=== PATIENT | male | born 1955 | race Caucasian/White ===

== ENCOUNTER 2016-07-12 06:52 | Inpatient (IN) | payer OTHER ==
[2016-07-12] VITALS (14 sets, daily range): BP systolic 0–162; BP diastolic 0–88
[~2016-07-12] VITALS: Ht 182.9 cm; Wt 96.2 kg
[~2016-07-12 06:52] MED LIST: ADVAIR 500/501 DISK IH; ALBUTEROL0.63 MG/3 IH; LANTUS 3 M100 UNITS1 SC; LANTUS 3 M100 UNITS1 SQ; LISINOPRIL40 MG PO; LO-DOSE ASPIRIN81 M2 PO; NIACIN500 M4 PO; NOVOLOG PE100 UNITS/ SC; SPIRIVA RESPIMAT4 GM IH; VALIUM5 MG PO; VENTOLIN HFA18 GM IH
[2016-07-12 08:36] LABS: ADD MIUA? YES; BILIRUBIN NEGATIVE; BLOOD MODERATE; COLOR STRAW ((YELLOW)); GLUCOSE (STRIP) >=500; KETONES 80; LEUKOCYTES NEGATIVE; NITRITE NEGATIVE; PROTEIN (STRIP) 100; SPECIFIC GRAVITY 1.021 (1.000-1.030); UROBILINOGEN 0.2 MG/DL (0.2-1.0)
[2016-07-12 08:39] LABS: BACTERIA NONE SEEN /HPF; EPITHELIAL CELLS NONE SEEN /HPF; MUCUS TRACE /LPF; RED BLOOD CELLS 0-5 /HPF (0-5); UCUL ADDED? NO; WHITE BLOOD CELLS 0-5 /HPF (0-5)
[2016-07-12 08:40] LABS: EOSINOPHIL (%) 0 % (0-5); HEMATOCRIT 43.3 % (38.0-50.0); IMMATURE GRANULOCYTE (%) 0.4 % (0.0-0.7); IMMATURE GRANULOCYTE COUNT 0.6 K/uL; LYMPHOCYTE COUNT 0.7 K/uL (1.0-2.8); MCH 33.3 PG (29.0-34.0); MCHC 36.3 G/DL (30.0-36.0); MCV 91.7 FL (86-99); MEAN PLAT.VOLUME 11.1 uM^3 (9.0-12.4); MONOCYTE (%) 5.8 % (3-12); MONOCYTE COUNT 0.8 K/uL (0-0.8); NEUTROPHIL (%) 88.5 % (45-76); NEUTROPHIL COUNT 12.2 K/uL (1.8-6.4); PLATELET COUNT 238 K/uL (156-360); RBC DIS.WIDTH-CV 12.9 % (11.8-14.6); RBC DIS.WIDTH-SD 42.2 % (39-53); RED BLOOD COUNT 4.72 M/uL (4.00-5.50); WHITE BLOOD COUNT 13.8 K/uL (4.1-10.2)
[2016-07-12 09:10] LABS: TROP-I INTERPRETATION NEGATIVE; TROPONIN-I 0.02 ng/mL (0.0-0.30)
[2016-07-12 09:17] LABS: ALKALINE PHOSPHATASE 101 IU/L (3-129); ANION GAP 30 MEQ/L (2-14); CHLORIDE 95 MEQ/L (99-109); GFR ESTIMATE (CALCULATED) > 59 mL/min/; LIPASE 12 U/L (1.0-51.0); POTASSIUM 5.1 MEQ/L (3.7-5.4); SAMPLE HEMOLYSIS CHECK 0; SAMPLE ICTERIC CHECK 0; SAMPLE LIPEMIA CHECK 0; SODIUM 132 MEQ/L (136-147); TOTAL BILIRUBIN 0.7 MG/DL (0.0-1.0); UREA NITROGEN (BUN) 30 mg/dL (9-23)
[2016-07-12 09:18] LABS: GLUCOSE 479 mg/dL (70-99)
[2016-07-12 11:46] LABS: INFLUENZA A VIRAL ANTIGEN NEGATIVE; INFLUENZA B VIRAL ANTIGEN NEGATIVE
[2016-07-12 12:32] LABS: METH RESISTANT S AUREUS PCR NEGATIVE (NEGATIVE)
[2016-07-12 12:44] LABS: PROBE CHECK PASS; SPECIMEN PROCESSING CONTROL PASS
[2016-07-12] MEDS ORDERED: SINGULAIR10 MG PO (12:57)
[2016-07-12] MEDS ORDERED: THEOPHYLLINE400 MG PO (12:57)
[2016-07-12] MEDS ORDERED: MICROZIDE12.5 M1 PO (12:58)
[2016-07-12] MEDS ORDERED: AUGMENTIN875 MG PO (12:59)
[2016-07-12] MEDS ORDERED: DEPO-TESTOS200 MG/ML IM (12:59)
[2016-07-12] MEDS ORDERED: VALIUM2 MG PO (13:00)
[2016-07-12 13:28] LABS: CARBOXY HGB 2.6 % (0-5); COMMENTS - BLOOD GASES A+C+; DEVICE RA; METHEMOGLOBIN 1.5 % (0-1.5); PCO2 < 18 mm Hg (35-45); PO2 108 mm Hg (80-100); SITE LR; pH 7.09 (7.35-7.45)
[2016-07-12 14:35] LABS: POINT-OF-CARE METER ID UU13113731
[2016-07-12 14:52] LABS: POINT-OF-CARE METER ID UU13113731
[2016-07-12 15:57] LABS: POINT-OF-CARE METER ID UU13113731
[2016-07-12 16:40] LABS: ANION GAP 16 MEQ/L (2-14); CHLORIDE 107 MEQ/L (99-109); GFR ESTIMATE (CALCULATED) > 59 mL/min/; GLUCOSE 296 mg/dL (70-99); POTASSIUM 4.7 MEQ/L (3.7-5.4); SAMPLE HEMOLYSIS CHECK 1; SAMPLE ICTERIC CHECK 0; SAMPLE LIPEMIA CHECK 0; SODIUM 133 MEQ/L (136-147); UREA NITROGEN (BUN) 29 mg/dL (9-23)
[2016-07-12 17:05] LABS: POINT-OF-CARE METER ID UU13113731
[2016-07-12 18:11] LABS: POINT-OF-CARE METER ID UU13113748
[2016-07-12 19:16] LABS: POINT-OF-CARE METER ID UU13113748
[2016-07-12 19:47] LABS: HEMATOCRIT 38.9 % (38.0-50.0); MCV 92.8 FL (86-99)
[2016-07-12 20:12] LABS: ANION GAP 12 MEQ/L (2-14); CHLORIDE 109 MEQ/L (99-109); POTASSIUM 4.1 MEQ/L (3.7-5.4); SAMPLE HEMOLYSIS CHECK 0; SAMPLE ICTERIC CHECK 0; SAMPLE LIPEMIA CHECK 0; SODIUM 136 MEQ/L (136-147)
[2016-07-12 20:17] LABS: GFR ESTIMATE (CALCULATED) > 59 mL/min/; GLUCOSE 192 mg/dL (70-99); UREA NITROGEN (BUN) 25 mg/dL (9-23)
[2016-07-12 20:37] LABS: POINT-OF-CARE METER ID UU13113748; POINT-OF-CARE USER ID PHATLC
[2016-07-12 21:32] LABS: POINT-OF-CARE METER ID UU13113748; POINT-OF-CARE USER ID PHATLC
[2016-07-12 22:50] LABS: POINT-OF-CARE METER ID UU13113748; POINT-OF-CARE USER ID PHATLC
[2016-07-12 23:55] LABS: POINT-OF-CARE METER ID UU13113748; POINT-OF-CARE USER ID PHATLC
[2016-07-13] VITALS (24 sets, daily range): BP systolic 118–159; BP diastolic 53–87
[2016-07-13 00:40] LABS: HEMATOCRIT 34.4 % (38.0-50.0); MCV 90.8 FL (86-99)
[2016-07-13 00:50] LABS: CHLORIDE 113 mEq/L (99-109); POTASSIUM 3.9 mEq/L (3.7-5.4); SODIUM 137 mEq/L (136-147)
[2016-07-13 00:52] LABS: GLUCOSE 131 mg/dL (70-99)
[2016-07-13 00:53] LABS: ANION GAP 8 MEQ/L (2-14)
[2016-07-13 00:56] LABS: GFR ESTIMATE (CALCULATED) > 59 mL/min/
[2016-07-13 00:57] LABS: UREA NITROGEN (BUN) 22 mg/dL (9-23)
[2016-07-13 00:58] LABS: POINT-OF-CARE METER ID UU13113748; POINT-OF-CARE USER ID PHATLC
[2016-07-13 03:19] LABS: POINT-OF-CARE METER ID UU13113731; POINT-OF-CARE USER ID PHATLC
[2016-07-13 05:58] LABS: HEMATOCRIT 35.2 % (38.0-50.0); MCV 93.6 FL (86-99)
[2016-07-13 06:40] LABS: ANION GAP 16 MEQ/L (2-14); CHLORIDE 107 MEQ/L (99-109); GFR ESTIMATE (CALCULATED) > 59 mL/min/; SAMPLE HEMOLYSIS CHECK 0; SAMPLE ICTERIC CHECK 0; SAMPLE LIPEMIA CHECK 0; SODIUM 135 MEQ/L (136-147); UREA NITROGEN (BUN) 21 mg/dL (9-23)
[2016-07-13 06:44] LABS: GLUCOSE 260 mg/dL (70-99); POTASSIUM 4.7 MEQ/L (3.7-5.4)
[2016-07-13 07:21] LABS: Estimated Average Glucose 272 mg/dL (70-123); HEMOGLOBIN A1c (GLYCOHEMOGLOB) 11.1 % HGB (Below 5.7)
[2016-07-13 08:13] LABS: MAGNESIUM 1.8 mg/dl (1.3-2.7)
[2016-07-13 09:16] LABS: ANION GAP 20 MEQ/L (2-14); CHLORIDE 105 MEQ/L (99-109); GFR ESTIMATE (CALCULATED) > 59 mL/min/; GLUCOSE 331 mg/dL (70-99); POTASSIUM 4.5 MEQ/L (3.7-5.4); SAMPLE HEMOLYSIS CHECK 0; SAMPLE ICTERIC CHECK 0; SAMPLE LIPEMIA CHECK 0; SODIUM 134 MEQ/L (136-147); UREA NITROGEN (BUN) 21 mg/dL (9-23)
[2016-07-13 11:17] LABS: POINT-OF-CARE METER ID UU13113731
[2016-07-13 11:17] LABS: POINT-OF-CARE METER ID UU14100415
[2016-07-13 11:17] LABS: POINT-OF-CARE METER ID UU13113731
[2016-07-13 11:17] LABS: POINT-OF-CARE METER ID UU13113731
[2016-07-13 12:23] LABS: HEMATOCRIT 33.7 % (38.0-50.0); MCV 93.6 FL (86-99)
[2016-07-13 12:36] LABS: POINT-OF-CARE METER ID UU13113731
[2016-07-13 13:05] LABS: TROP-I INTERPRETATION NEGATIVE; TROPONIN-I 0.02 ng/mL (0.0-0.30)
[2016-07-13 13:28] LABS: CK-MB 2.8 ng/mL (0.0-4.9)
[2016-07-13 13:29] LABS: ANION GAP 15 MEQ/L (2-14); CHLORIDE 108 MEQ/L (99-109); CREATINE KINASE 38 IU/L (1-294); GFR ESTIMATE (CALCULATED) > 59 mL/min/; GLUCOSE 303 mg/dL (70-99); POTASSIUM 4.3 MEQ/L (3.7-5.4); SAMPLE HEMOLYSIS CHECK 0; SAMPLE ICTERIC CHECK 0; SAMPLE LIPEMIA CHECK 0; SODIUM 136 MEQ/L (136-147); TOTAL CK 38 IU/L (1-294); UREA NITROGEN (BUN) 20 mg/dL (9-23)
[2016-07-13 14:49] LABS: POINT-OF-CARE METER ID UU13113731
[2016-07-13 15:50] LABS: POINT-OF-CARE METER ID UU13113731
[2016-07-13 16:48] LABS: ANION GAP 11 MEQ/L (2-14); CHLORIDE 108 MEQ/L (99-109); POTASSIUM 3.6 MEQ/L (3.7-5.4); SAMPLE HEMOLYSIS CHECK 0; SAMPLE ICTERIC CHECK 0; SAMPLE LIPEMIA CHECK 0; SODIUM 135 MEQ/L (136-147)
[2016-07-13 16:53] LABS: GFR ESTIMATE (CALCULATED) > 59 mL/min/; GLUCOSE 254 mg/dL (70-99); UREA NITROGEN (BUN) 16 mg/dL (9-23)
[2016-07-13 16:56] LABS: POINT-OF-CARE METER ID UU13113803
[2016-07-13 18:12] LABS: POINT-OF-CARE METER ID UU13113803
[2016-07-13 18:12] LABS: MCV 92.2 FL (86-99)
[2016-07-13 18:27] LABS: CREATINE KINASE 35 IU/L (1-294); TOTAL CK 35 IU/L (1-294)
[2016-07-13 18:29] LABS: ANION GAP 9 MEQ/L (2-14); CHLORIDE 110 MEQ/L (99-109); POTASSIUM 3.8 MEQ/L (3.7-5.4); SAMPLE HEMOLYSIS CHECK 0; SAMPLE ICTERIC CHECK 0; SAMPLE LIPEMIA CHECK 0; SODIUM 137 MEQ/L (136-147)
[2016-07-13 18:34] LABS: GFR ESTIMATE (CALCULATED) > 59 mL/min/; GLUCOSE 198 mg/dL (70-99); TROP-I INTERPRETATION NEGATIVE; TROPONIN-I < 0.01 ng/mL (0.0-0.30); UREA NITROGEN (BUN) 15 mg/dL (9-23)
[2016-07-13 18:35] LABS: CK-MB 2.9 ng/mL (0.0-4.9)
[2016-07-13 19:24] LABS: POINT-OF-CARE METER ID UU13113803
[2016-07-13 20:38] LABS: POINT-OF-CARE METER ID UU13113803
[2016-07-13 21:29] LABS: POINT-OF-CARE METER ID UU13113803
[2016-07-13 22:23] LABS: POINT-OF-CARE METER ID UU13113803
[2016-07-13 23:46] LABS: POINT-OF-CARE METER ID UU13113731
[2016-07-14] VITALS (16 sets, daily range): BP systolic 143–180; BP diastolic 56–100
[2016-07-14 00:12] LABS: POINT-OF-CARE METER ID UU13113803
[2016-07-14 00:42] LABS: HEMATOCRIT 31.8 % (38.0-50.0); MCV 91.1 FL (86-99)
[2016-07-14 00:52] LABS: CHLORIDE 112 mEq/L (99-109); POTASSIUM 3.4 mEq/L (3.7-5.4); SODIUM 138 mEq/L (136-147)
[2016-07-14 00:53] LABS: GLUCOSE 125 mg/dL (70-99)
[2016-07-14 00:55] LABS: ANION GAP 7 MEQ/L (2-14)
[2016-07-14 00:57] LABS: GFR ESTIMATE (CALCULATED) > 59 mL/min/
[2016-07-14 00:58] LABS: UREA NITROGEN (BUN) 12 mg/dL (9-23)
[2016-07-14 01:00] LABS: CREATINE KINASE 31 IU/L (1-294); TOTAL CK 31 IU/L (1-294)
[2016-07-14 01:01] LABS: TROP-I INTERPRETATION NEGATIVE; TROPONIN-I < 0.01 ng/mL (0.0-0.30)
[2016-07-14 01:05] LABS: CK-MB 2.6 ng/mL (0.0-4.9)
[2016-07-14 01:17] LABS: POINT-OF-CARE METER ID UU13113803
[2016-07-14 02:25] LABS: POINT-OF-CARE METER ID UU14174217
[2016-07-14 05:54] LABS: EOSINOPHIL (%) 2.8 % (0-5); EOSINOPHIL COUNT 0.2 K/uL (0-0.3); HEMATOCRIT 32.3 % (38.0-50.0); IMMATURE GRANULOCYTE (%) 0.4 % (0.0-0.7); LYMPHOCYTE COUNT 1.1 K/uL (1.0-2.8); MCH 33.3 PG (29.0-34.0); MCHC 36.2 G/DL (30.0-36.0); MEAN PLAT.VOLUME 10.6 uM^3 (9.0-12.4); MONOCYTE COUNT 1.1 K/uL (0-0.8); NEUTROPHIL COUNT 5.4 K/uL (1.8-6.4); PLATELET COUNT 173 K/uL (156-360); RBC DIS.WIDTH-CV 12.8 % (11.8-14.6); RBC DIS.WIDTH-SD 42.9 % (39-53)
[2016-07-14 05:55] LABS: RED BLOOD COUNT 3.51 M/uL (4.00-5.50); WHITE BLOOD COUNT 7.9 K/uL (4.1-10.2)
[2016-07-14 05:57] LABS: TROP-I INTERPRETATION NEGATIVE; TROPONIN-I < 0.01 ng/mL (0.0-0.30)
[2016-07-14 06:04] LABS: ANION GAP 8 MEQ/L (2-14); CHLORIDE 107 MEQ/L (99-109); CREATINE KINASE 24 IU/L (1-294); GFR ESTIMATE (CALCULATED) > 59 mL/min/; GLUCOSE 162 mg/dL (70-99); POTASSIUM 3.6 MEQ/L (3.7-5.4); SAMPLE HEMOLYSIS CHECK 0; SAMPLE ICTERIC CHECK 0; SAMPLE LIPEMIA CHECK 0; SODIUM 135 MEQ/L (136-147); TOTAL CK 24 IU/L (1-294); UREA NITROGEN (BUN) 10 mg/dL (9-23)
[2016-07-14 06:22] LABS: POINT-OF-CARE METER ID UU13113803
[2016-07-14 06:46] LABS: CK-MB 1.8 ng/mL (0.0-4.9)
[2016-07-14 10:40] LABS: POINT-OF-CARE METER ID UU14174217
[2016-07-14 12:29] LABS: HEMATOCRIT 33.5 % (38.0-50.0); MCV 92.5 FL (86-99)
[2016-07-14 13:55] LABS: POINT-OF-CARE METER ID UU13113803
[2016-07-14 14:40] LABS: POINT-OF-CARE METER ID UU14174217
[2016-07-14 17:40] LABS: POINT-OF-CARE METER ID UU14174217
[2016-07-14 22:11] LABS: POINT-OF-CARE METER ID UU14174217
[2016-07-15] VITALS: BP 165/79
[2016-07-15 04:00] VITALS: BP 170/83
[2016-07-15 05:57] LABS: POINT-OF-CARE METER ID UU14162636
[2016-07-15 06:11] LABS: EOSINOPHIL (%) 3.1 % (0-5); EOSINOPHIL COUNT 0.2 K/uL (0-0.3); HEMATOCRIT 34.3 % (38.0-50.0); IMMATURE GRANULOCYTE (%) 0.6 % (0.0-0.7); LYMPHOCYTE COUNT 1.3 K/uL (1.0-2.8); MCH 31.7 PG (29.0-34.0); MCV 90.7 FL (86-99); MEAN PLAT.VOLUME 10.6 uM^3 (9.0-12.4); MONOCYTE (%) 13.6 % (3-12); MONOCYTE COUNT 0.9 K/uL (0-0.8); NEUTROPHIL (%) 61.9 % (45-76); PLATELET COUNT 194 K/uL (156-360); RBC DIS.WIDTH-CV 12.4 % (11.8-14.6); RBC DIS.WIDTH-SD 40.6 % (39-53); RED BLOOD COUNT 3.78 M/uL (4.00-5.50); WHITE BLOOD COUNT 6.4 K/uL (4.1-10.2)
[2016-07-15 07:09] LABS: ANION GAP 7 MEQ/L (2-14); CHLORIDE 104 MEQ/L (99-109); GFR ESTIMATE (CALCULATED) > 59 mL/min/; POTASSIUM 3.4 MEQ/L (3.7-5.4); SAMPLE HEMOLYSIS CHECK 0; SAMPLE ICTERIC CHECK 0; SAMPLE LIPEMIA CHECK 0; SODIUM 138 MEQ/L (136-147); UREA NITROGEN (BUN) 8 mg/dL (9-23)
[2016-07-15 07:10] LABS: GLUCOSE 85 mg/dL (70-99)
[2016-07-15 07:36] LABS: POINT-OF-CARE METER ID UU14174217
[2016-07-15 07:43] LABS: MAGNESIUM 1.9 mg/dl (1.3-2.7)
[2016-07-15 08:00] VITALS: BP 145/72
[2016-07-15] MEDS ORDERED: LEVAQUIN500 MG PO (08:08)
[2016-07-15 13:00] VITALS: BP 112/66
[2016-07-15 16:00] VITALS: BP 139/69
== END 2016-07-15 19:12 | disposition home or self-care (01) | DRG 638 ==
LOC: EME → EDBD 06:52 → EME 06:52 → EDOF 10:15 → 4WEST 10:15 → EDOF 10:15 → 4WEST 11:10
PROVIDERS: Emergency Medicine; Internal Medicine; Internal Medicine Nephrology
DX: E10.10 Type 1 diabetes mellitus with ketoacidosis without coma (principal); K92.2 Gastrointestinal hemorrhage, unspecified; E86.0 Dehydration; J44.9 Chronic obstructive pulmonary disease, unspecified; I10 Essential (primary) hypertension; G47.33 Obstructive sleep apnea (adult) (pediatric); N40.0 Benign prostatic hyperplasia without lower urinary tract symptoms; Z87.891 Personal history of nicotine dependence; E66.9 Obesity, unspecified; K52.9 Noninfective gastroenteritis and colitis, unspecified; J84.10 Pulmonary fibrosis, unspecified; E86.1 Hypovolemia; Z91.138 Patient's unintentional underdosing of medication regimen for other reason; T38.3X5A Adverse effect of insulin and oral hypoglycemic [antidiabetic] drugs, initial encounter; T38.3X6A Underdosing of insulin and oral hypoglycemic [antidiabetic] drugs, initial encounter
CPT/HCPCS: 36600; 71020; 80048; 80048 91; 80053; 81003; 82550; 82550 91; 82553; 82803; 82948; 83036; 83605; 83690; 83735; 84100; 84484; 85014; 85018; 85025; 87040; 87502; 87641; 93005; 94640; 94640 76; 94760; 94799; 99202; 99281; 99285; C9113; J1644; J1815; J1956; J2270; J2405; J2765; J3475; J3480; J7030; J7040; J7050; J7120

== ENCOUNTER 2017-01-12 16:32 | Emergency (ER) | payer OTHER ==
[~2017-01-12] VITALS: Ht 180.3 cm; Wt 66.9 kg
[~2017-01-12 16:32] MED LIST changes: +AUGMENTIN875 MG PO; +DEPO-TESTOS200 MG/ML IM; +LEVAQUIN500 MG PO; +MICROZIDE12.5 M1 PO; +SINGULAIR10 MG PO; +THEOPHYLLINE400 MG PO; +VALIUM2 MG PO
[2017-01-12 17:20] LABS: EOSINOPHIL (%) 2.4 % (0-5); EOSINOPHIL COUNT 0.3 K/uL (0-0.3); HEMATOCRIT 37.9 % (38.0-50.0); IMMATURE GRANULOCYTE (%) 0.4 % (0.0-0.7); IMMATURE GRANULOCYTE COUNT 0.1 K/uL; INSTRUMENT ABS NEUTROPHIL CT 7.7 K/uL; LYMPHOCYTE COUNT 3.3 K/uL (1.0-2.8); MCH 32.6 PG (29.0-34.0); MCHC 36.9 G/DL (30.0-36.0); MCV 88.3 FL (86-99); MEAN PLAT.VOLUME 10.1 uM^3 (9.0-12.4); MONOCYTE (%) 5.7 % (3-12); MONOCYTE COUNT 0.7 K/uL (0-0.8); NEUTROPHIL (%) 63.9 % (45-76); NEUTROPHIL COUNT 7.7 K/uL (1.8-6.4); PLATELET COUNT 272 K/uL (156-360); RBC DIS.WIDTH-CV 12.4 % (11.8-14.6); RBC DIS.WIDTH-SD 40.1 % (39-53); RED BLOOD COUNT 4.29 M/uL (4.00-5.50)
[2017-01-12 17:30] LABS: PROTHROMBIN TIME 10.6 SEC (10.2-12.9)
[2017-01-12 17:33] LABS: CHLORIDE 101 mEq/L (99-109); MAGNESIUM 2.1 mg/dL (1.3-2.7); POTASSIUM 3.4 mEq/L (3.7-5.4); PTT 28.4 SEC (25-37); SODIUM 135 mEq/L (136-147)
[2017-01-12 17:35] LABS: GLUCOSE 84 mg/dL (70-99)
[2017-01-12 17:37] LABS: ANION GAP 13 MEQ/L (2-14); TOTAL BILIRUBIN 0.4 mg/dL (0.0-1.0)
[2017-01-12 17:38] LABS: SERUM ETHYL ALCOHOL 40 mg/dL
[2017-01-12 17:39] LABS: ALKALINE PHOSPHATASE 68 IU/L (3-129); GFR ESTIMATE (CALCULATED) > 59 mL/min/
[2017-01-12 17:40] LABS: UREA NITROGEN (BUN) 30 mg/dL (9-23)
[2017-01-12 17:41] LABS: DIRECT BILIRUBIN 0.2 mg/dL (0.0-0.3)
[2017-01-12 17:43] LABS: LIPASE 9 U/L (1.0-51.0)
[2017-01-12 17:50] LABS: TROP-I INTERPRETATION NEGATIVE; TROPONIN-I < 0.01 ng/mL (0.0-0.30)
[2017-01-12 18:56] LABS: TROP-I INTERPRETATION NEGATIVE; TROPONIN-I < 0.01 ng/mL (0.0-0.30)
[2017-01-12 19:05] VITALS: BP 154/83
== END 2017-01-12 19:12 | disposition home or self-care (01) ==
LOC: EME 16:32
PROVIDERS: Emergency Medicine
DX: R07.89 Other chest pain (principal); E11.9 Type 2 diabetes mellitus without complications; Z96.41 Presence of insulin pump (external) (internal); Z79.4 Long term (current) use of insulin; R10.13 Epigastric pain; J44.9 Chronic obstructive pulmonary disease, unspecified; N40.0 Benign prostatic hyperplasia without lower urinary tract symptoms; G47.33 Obstructive sleep apnea (adult) (pediatric); F17.200 Nicotine dependence, unspecified, uncomplicated
CPT/HCPCS: 71010; 80048; 80076; 82010; 82803; 83690; 83735; 84484; 85025; 85610; 85730; 93005; 99281; 99285; G0480; J7030

== ENCOUNTER 2017-02-13 13:52 | Inpatient (IN) | payer OTHER ==
[~2017-02-13] VITALS: Ht 180.3 cm; Wt 70.4 kg
[2017-02-13 15:09] LABS: EOSINOPHIL (%) 3.6 % (0-5); EOSINOPHIL COUNT 0.4 K/uL (0-0.3); HEMATOCRIT 36.7 % (38.0-50.0); IMMATURE GRANULOCYTE (%) 0.3 % (0.0-0.7); INSTRUMENT ABS NEUTROPHIL CT 6.4 K/uL; LYMPHOCYTE COUNT 2.4 K/uL (1.0-2.8); MCH 32.3 PG (29.0-34.0); MCHC 35.1 G/DL (30.0-36.0); MCV 91.8 FL (86-99); MEAN PLAT.VOLUME 10.1 uM^3 (9.0-12.4); MONOCYTE (%) 7.8 % (3-12); MONOCYTE COUNT 0.8 K/uL (0-0.8); NEUTROPHIL (%) 64.2 % (45-76); NEUTROPHIL COUNT 6.4 K/uL (1.8-6.4); PLATELET COUNT 219 K/uL (156-360); RBC DIS.WIDTH-CV 12.9 % (11.8-14.6); RBC DIS.WIDTH-SD 43.2 % (39-53)
[2017-02-13 15:21] LABS: CHLORIDE 104 mEq/L (99-109); POTASSIUM 4.4 mEq/L (3.7-5.4); SODIUM 136 mEq/L (136-147)
[2017-02-13 15:22] LABS: GLUCOSE 85 mg/dL (70-99)
[2017-02-13 15:24] LABS: ANION GAP 5 MEQ/L (2-14)
[2017-02-13 15:26] LABS: GFR ESTIMATE (CALCULATED) > 59 mL/min/
[2017-02-13 15:27] LABS: UREA NITROGEN (BUN) 16 mg/dL (9-23)
[2017-02-13] MEDS ORDERED: INSULIN PUMP MC (16:45)
[2017-02-13] MEDS ORDERED: SYMBICORT60 INHALAT IH (17:26)
[2017-02-13] MEDS ORDERED: Topiramate (17:28)
[2017-02-13] MEDS ORDERED: LAMOTRIGINE PO (17:29)
[2017-02-13] MEDS ORDERED: ERGOCALCIF50000 UNIT PO (17:33)
[2017-02-13] MEDS ORDERED: TESSALON PERLE100 MG PO (17:35)
[2017-02-13] MEDS ORDERED: BENZONATATE100 MG PO (17:35)
[2017-02-13] MEDS ORDERED: MUCUS ER600 MG PO (17:40)
[2017-02-13] MEDS ORDERED: prostate medication (17:48)
[2017-02-13 20:04] VITALS: BP 147/83
[2017-02-13 23:04] LABS: POINT-OF-CARE METER ID UU13113717
[2017-02-13 23:39] VITALS: BP 144/81
[2017-02-14 06:27] LABS: HEMATOCRIT 34.1 % (38.0-50.0); MCH 33.9 PG (29.0-34.0); MCV 91.7 FL (86-99); MEAN PLAT.VOLUME 10.7 uM^3 (9.0-12.4); PLATELET COUNT 226 K/uL (156-360); RBC DIS.WIDTH-SD 43.4 % (39-53); RED BLOOD COUNT 3.72 M/uL (4.00-5.50); WHITE BLOOD COUNT 8.8 K/uL (4.1-10.2)
[2017-02-14 06:32] LABS: PROTHROMBIN TIME 11.4 SEC (10.2-12.9)
[2017-02-14 06:51] LABS: ALKALINE PHOSPHATASE 61 IU/L (3-129); ANION GAP 6 MEQ/L (2-14); CHLORIDE 105 MEQ/L (99-109); GFR ESTIMATE (CALCULATED) > 59 mL/min/; GLUCOSE 92 mg/dL (70-99); POTASSIUM 4.2 MEQ/L (3.7-5.4); SAMPLE HEMOLYSIS CHECK 0; SAMPLE ICTERIC CHECK 0; SAMPLE LIPEMIA CHECK 0; SODIUM 139 MEQ/L (136-147); TOTAL BILIRUBIN 0.9 MG/DL (0.0-1.0); UREA NITROGEN (BUN) 14 mg/dL (9-23)
[2017-02-14 09:26] VITALS: BP 145/82
[2017-02-14 12:08] LABS: POINT-OF-CARE METER ID UU14188625
[2017-02-14 16:52] LABS: POINT-OF-CARE METER ID UU14188625
[2017-02-14 16:53] LABS: POINT-OF-CARE METER ID UU14188625
[2017-02-14 18:05] LABS: POINT-OF-CARE METER ID UU13113717
[2017-02-15] VITALS: BP 155/77
[2017-02-15 01:16] VITALS: BP 174/84
[2017-02-15 03:47] LABS: METH RESISTANT S AUREUS PCR NEGATIVE (NEGATIVE)
[2017-02-15 03:50] LABS: PROBE CHECK PASS; SPECIMEN PROCESSING CONTROL PASS
[2017-02-15 06:54] LABS: Estimated Average Glucose 186 mg/dL (70-123)
[2017-02-15 07:04] LABS: HEMOGLOBIN A1c (GLYCOHEMOGLOB) 8.1 % HGB (Below 5.7)
[2017-02-15 07:50] VITALS: BP 157/79
[2017-02-15 12:20] LABS: POINT-OF-CARE METER ID UU14188625
[2017-02-15 15:15] VITALS: BP 132/63
[2017-02-15 16:12] LABS: POINT-OF-CARE METER ID UU13113717
[2017-02-15 23:25] VITALS: BP 137/77
[2017-02-16 07:54] VITALS: BP 164/97
[2017-02-16 08:22] LABS: POINT-OF-CARE METER ID UU13113717
[2017-02-16 15:33] VITALS: BP 150/78
[2017-02-16 17:35] LABS: POINT-OF-CARE METER ID UU13113717
[2017-02-17] VITALS: BP 160/80
[2017-02-17 08:03] VITALS: BP 160/87
[2017-02-17] MEDS ORDERED: ULTRAM50 MG PO (11:25)
[2017-02-17] MEDS ORDERED: KEFLEX500 MG PO (11:25)
[2017-02-18 15:21] LABS: POINT-OF-CARE METER ID UU13113717
[2017-02-18 15:23] LABS: POINT-OF-CARE METER ID UU13113717
[2017-02-18 15:23] LABS: POINT-OF-CARE METER ID UU13113717; POINT-OF-CARE USER ID STWAMT
== END 2017-02-17 12:10 | disposition home or self-care (01) | DRG 603 ==
LOC: EME 13:52 → EDOF 17:21 → 5SOUTH 17:21 → ENRESERV 17:26 → 5SOUTH 19:20
PROVIDERS: Emergency Medicine; Hospitalist; Internal Medicine Infectious Disease; Physician Assistant
DX: L03.115 Cellulitis of right lower limb (principal); E11.621 Type 2 diabetes mellitus with foot ulcer; L97.519 Non-pressure chronic ulcer of other part of right foot with unspecified severity; F17.210 Nicotine dependence, cigarettes, uncomplicated; Z96.41 Presence of insulin pump (external) (internal); E11.622 Type 2 diabetes mellitus with other skin ulcer; E11.42 Type 2 diabetes mellitus with diabetic polyneuropathy; N40.0 Benign prostatic hyperplasia without lower urinary tract symptoms; E11.628 Type 2 diabetes mellitus with other skin complications; E11.65 Type 2 diabetes mellitus with hyperglycemia; I10 Essential (primary) hypertension; J44.9 Chronic obstructive pulmonary disease, unspecified; G47.33 Obstructive sleep apnea (adult) (pediatric); F10.10 Alcohol abuse, uncomplicated; Z79.51 Long term (current) use of inhaled steroids; Z79.899 Other long term (current) drug therapy; Z79.4 Long term (current) use of insulin; Z79.82 Long term (current) use of aspirin
CPT/HCPCS: 73630; 73720; 80048; 80053; 80202; 82948; 83036; 85025; 85027; 85610; 85651; 86140; 87641; 90686; 94640; 94640 76; 99202; 99281; 99285; J0360; J0690; J1650; J1815; J2405; J2543; J3370; J7050

== ENCOUNTER 2017-04-06 10:43 | Inpatient (IN) | payer OTHER ==
[~2017-04-06] VITALS: Ht 180.3 cm; Wt 74.1 kg
[~2017-04-06 10:43] MED LIST changes: +BENZONATATE100 MG PO; +ERGOCALCIF50000 UNIT PO; +INSULIN PUMP MC; +KEFLEX500 MG PO; +LAMOTRIGINE PO; +MUCUS ER600 MG PO; +SYMBICORT60 INHALAT IH; +TESSALON PERLE100 MG PO; +Topiramate; +ULTRAM50 MG PO; +prostate medication
[2017-04-06 11:20] LABS: BASOPHIL COUNT 0.1 K/uL (0-0.1); EOSINOPHIL (%) 2.3 % (0-5); EOSINOPHIL COUNT 0.2 K/uL (0-0.3); HEMATOCRIT 35.2 % (38.0-50.0); IMMATURE GRANULOCYTE (%) 0.5 % (0.0-0.7); INSTRUMENT ABS NEUTROPHIL CT 6.2 K/uL; LYMPHOCYTE COUNT 1.5 K/uL (1.0-2.8); MCH 32.1 PG (29.0-34.0); MCHC 35.5 G/DL (30.0-36.0); MCV 90.3 FL (86-99); MEAN PLAT.VOLUME 9.8 uM^3 (9.0-12.4); MONOCYTE (%) 6.7 % (3-12); MONOCYTE COUNT 0.6 K/uL (0-0.8); NEUTROPHIL (%) 72.3 % (45-76); NEUTROPHIL COUNT 6.2 K/uL (1.8-6.4); PLATELET COUNT 334 K/uL (156-360); RBC DIS.WIDTH-CV 12.9 % (11.8-14.6); RBC DIS.WIDTH-SD 42.6 % (39-53); WHITE BLOOD COUNT 8.6 K/uL (4.1-10.2)
[2017-04-06 11:29] LABS: CHLORIDE 98 mEq/L (99-109); POTASSIUM 4.4 mEq/L (3.7-5.4); SODIUM 132 mEq/L (136-147)
[2017-04-06 11:30] LABS: MAGNESIUM 1.9 mg/dL (1.3-2.7)
[2017-04-06 11:32] LABS: GLUCOSE 466 mg/dL (70-99)
[2017-04-06 11:33] LABS: ANION GAP 7 MEQ/L (2-14); TOTAL BILIRUBIN 0.7 mg/dL (0.0-1.0)
[2017-04-06 11:35] LABS: ALKALINE PHOSPHATASE 94 IU/L (3-129); GFR ESTIMATE (CALCULATED) > 59 mL/min/
[2017-04-06 11:36] LABS: UREA NITROGEN (BUN) 23 mg/dL (9-23)
[2017-04-06] MEDS ORDERED: ASPIRIN EC325 MG PO (13:05)
[2017-04-06 13:33] LABS: C-REACTIVE PROTEIN 10.3 MG/L (0-10); SAMPLE HEMOLYSIS CHECK 0; SAMPLE ICTERIC CHECK 0; SAMPLE LIPEMIA CHECK 0
[2017-04-06 13:48] LABS: POINT-OF-CARE METER ID UU13113747
[2017-04-06 14:50] VITALS: BP 186/88
[2017-04-06 15:13] VITALS: BP 186/88
[2017-04-06 15:52] LABS: POINT-OF-CARE METER ID UU13113778
[2017-04-06 19:00] VITALS: BP 172/88
[2017-04-06 21:47] LABS: POINT-OF-CARE METER ID UU13113774
[2017-04-07 00:27] VITALS: BP 130/60
[2017-04-07 04:00] VITALS: BP 159/74
[2017-04-07 06:12] LABS: POINT-OF-CARE METER ID UU13113774
[2017-04-07 06:16] LABS: HEMATOCRIT 30.3 % (38.0-50.0); MCH 31.3 PG (29.0-34.0); MCHC 34.7 G/DL (30.0-36.0); MCV 90.2 FL (86-99); MEAN PLAT.VOLUME 9.9 uM^3 (9.0-12.4); PLATELET COUNT 294 K/uL (156-360); RBC DIS.WIDTH-CV 12.7 % (11.8-14.6); RBC DIS.WIDTH-SD 41.5 % (39-53); RED BLOOD COUNT 3.36 M/uL (4.00-5.50); WHITE BLOOD COUNT 7.7 K/uL (4.1-10.2)
[2017-04-07 06:34] LABS: ANION GAP 4 MEQ/L (2-14); CHLORIDE 103 MEQ/L (99-109); GFR ESTIMATE (CALCULATED) > 59 mL/min/; GLUCOSE 274 mg/dL (70-99); POTASSIUM 4.2 MEQ/L (3.7-5.4); SAMPLE HEMOLYSIS CHECK 0; SAMPLE ICTERIC CHECK 0; SAMPLE LIPEMIA CHECK 0; SODIUM 136 MEQ/L (136-147); UREA NITROGEN (BUN) 18 mg/dL (9-23)
[2017-04-07 08:01] VITALS: BP 132/67
[2017-04-07 11:37] LABS: POINT-OF-CARE METER ID UU13113725
[2017-04-07 11:39] VITALS: BP 168/81
[2017-04-07 15:48] LABS: POINT-OF-CARE METER ID UU13113725
[2017-04-07 15:58] VITALS: BP 158/77
[2017-04-07 21:53] LABS: POINT-OF-CARE METER ID UU13113725
[2017-04-08 00:05] VITALS: BP 160/77
[2017-04-08 05:46] LABS: EOSINOPHIL (%) 2.1 % (0-5); EOSINOPHIL COUNT 0.2 K/uL (0-0.3); HEMATOCRIT 32.7 % (38.0-50.0); IMMATURE GRANULOCYTE (%) 0.4 % (0.0-0.7); INSTRUMENT ABS NEUTROPHIL CT 5.4 K/uL; LYMPHOCYTE COUNT 1.7 K/uL (1.0-2.8); MCH 31.3 PG (29.0-34.0); MCHC 35.2 G/DL (30.0-36.0); MCV 89.1 FL (86-99); MEAN PLAT.VOLUME 9.6 uM^3 (9.0-12.4); MONOCYTE (%) 7.6 % (3-12); MONOCYTE COUNT 0.6 K/uL (0-0.8); NEUTROPHIL (%) 67.8 % (45-76); NEUTROPHIL COUNT 5.4 K/uL (1.8-6.4); PLATELET COUNT 267 K/uL (156-360); RBC DIS.WIDTH-CV 12.5 % (11.8-14.6); RBC DIS.WIDTH-SD 40.3 % (39-53); RED BLOOD COUNT 3.67 M/uL (4.00-5.50); WHITE BLOOD COUNT 7.9 K/uL (4.1-10.2)
[2017-04-08 05:58] LABS: POINT-OF-CARE METER ID UU13113725
[2017-04-08 06:26] LABS: ANION GAP 7 MEQ/L (2-14); CHLORIDE 103 MEQ/L (99-109); GFR ESTIMATE (CALCULATED) > 59 mL/min/; GLUCOSE 332 mg/dL (70-99); POTASSIUM 4.5 MEQ/L (3.7-5.4); SAMPLE HEMOLYSIS CHECK 0; SAMPLE ICTERIC CHECK 0; SAMPLE LIPEMIA CHECK 0; SODIUM 136 MEQ/L (136-147); UREA NITROGEN (BUN) 18 mg/dL (9-23)
[2017-04-08 07:50] LABS: ERTH.SED.RATE 23 MM/HR (0-20)
[2017-04-08 08:50] VITALS: BP 128/69
[2017-04-08 10:58] LABS: POINT-OF-CARE METER ID UU13113725
[2017-04-08 12:47] VITALS: BP 124/70
[2017-04-08 12:50] LABS: POINT-OF-CARE METER ID UU13113725
[2017-04-08 16:21] LABS: POINT-OF-CARE METER ID UU13113725
[2017-04-08 16:52] VITALS: BP 122/70
[2017-04-08 18:46] LABS: POINT-OF-CARE METER ID UU13113675; POINT-OF-CARE USER ID ADMKMM76
[2017-04-08 20:28] LABS: POINT-OF-CARE METER ID UU13113774
[2017-04-08 22:41] LABS: POINT-OF-CARE METER ID UU13113725
[2017-04-09 00:15] VITALS: BP 130/76
[2017-04-09 05:52] LABS: EOSINOPHIL (%) 1.9 % (0-5); EOSINOPHIL COUNT 0.2 K/uL (0-0.3); HEMATOCRIT 32.9 % (38.0-50.0); IMMATURE GRANULOCYTE (%) 0.3 % (0.0-0.7); INSTRUMENT ABS NEUTROPHIL CT 7.1 K/uL; LYMPHOCYTE COUNT 1.5 K/uL (1.0-2.8); MCH 31.3 PG (29.0-34.0); MCHC 34.7 G/DL (30.0-36.0); MCV 90.4 FL (86-99); MEAN PLAT.VOLUME 9.9 uM^3 (9.0-12.4); MONOCYTE (%) 8.1 % (3-12); MONOCYTE COUNT 0.8 K/uL (0-0.8); NEUTROPHIL (%) 73.6 % (45-76); NEUTROPHIL COUNT 7.1 K/uL (1.8-6.4); PLATELET COUNT 284 K/uL (156-360); RBC DIS.WIDTH-CV 12.7 % (11.8-14.6); RBC DIS.WIDTH-SD 42.1 % (39-53); RED BLOOD COUNT 3.64 M/uL (4.00-5.50); WHITE BLOOD COUNT 9.6 K/uL (4.1-10.2)
[2017-04-09 06:17] LABS: ANION GAP 6 MEQ/L (2-14); CHLORIDE 105 MEQ/L (99-109); GFR ESTIMATE (CALCULATED) > 59 mL/min/; GLUCOSE 256 mg/dL (70-99); POTASSIUM 4.3 MEQ/L (3.7-5.4); SAMPLE HEMOLYSIS CHECK 0; SAMPLE ICTERIC CHECK 0; SAMPLE LIPEMIA CHECK 0; SODIUM 137 MEQ/L (136-147); UREA NITROGEN (BUN) 18 mg/dL (9-23)
[2017-04-09 06:54] LABS: POINT-OF-CARE METER ID UU13113725
[2017-04-09 07:38] VITALS: BP 141/66
[2017-04-09 11:51] LABS: POINT-OF-CARE METER ID UU13113725
[2017-04-09 15:00] VITALS: BP 144/77
[2017-04-09 16:37] LABS: POINT-OF-CARE METER ID UU13113725
[2017-04-09 18:03] LABS: POINT-OF-CARE METER ID UU13113725
[2017-04-09 21:37] LABS: POINT-OF-CARE METER ID UU13113774
[2017-04-10 00:51] VITALS: BP 150/71
[2017-04-10 01:47] LABS: POINT-OF-CARE METER ID UU13113725
[2017-04-10 06:14] LABS: POINT-OF-CARE METER ID UU13113725
[2017-04-10 06:51] LABS: GFR ESTIMATE (CALCULATED) > 59 mL/min/
[2017-04-10 07:58] VITALS: BP 130/66
[2017-04-10 11:56] LABS: POINT-OF-CARE METER ID UU13113774
[2017-04-10 15:52] VITALS: BP 133/63
[2017-04-10 17:03] LABS: POINT-OF-CARE METER ID UU13113774
[2017-04-10 20:55] LABS: POINT-OF-CARE METER ID UU13113774
[2017-04-11 00:29] VITALS: BP 161/79
[2017-04-11 06:24] LABS: POINT-OF-CARE METER ID UU13113774
[2017-04-11 06:32] LABS: HEMATOCRIT 31.2 % (38.0-50.0); MCH 31.7 PG (29.0-34.0); MCHC 34.6 G/DL (30.0-36.0); MCV 91.5 FL (86-99); PLATELET COUNT 234 K/uL (156-360); RBC DIS.WIDTH-SD 42.3 % (39-53); RED BLOOD COUNT 3.41 M/uL (4.00-5.50); WHITE BLOOD COUNT 7.5 K/uL (4.1-10.2)
[2017-04-11 07:03] LABS: ANION GAP 8 MEQ/L (2-14); CHLORIDE 108 MEQ/L (99-109); GFR ESTIMATE (CALCULATED) > 59 mL/min/; POTASSIUM 3.9 MEQ/L (3.7-5.4); SAMPLE HEMOLYSIS CHECK 0; SAMPLE ICTERIC CHECK 0; SAMPLE LIPEMIA CHECK 0; SODIUM 141 MEQ/L (136-147); UREA NITROGEN (BUN) 21 mg/dL (9-23)
[2017-04-11 07:04] LABS: GLUCOSE 109 mg/dL (70-99)
[2017-04-11 08:06] VITALS: BP 143/72
[2017-04-11 11:21] LABS: GFR ESTIMATE (CALCULATED) > 59 mL/min/; VANCOMYCIN, TROUGH 20.6 MCG/ML (10-20)
[2017-04-11 11:37] LABS: POINT-OF-CARE METER ID UU13113774
[2017-04-11 16:00] VITALS: BP 144/90
[2017-04-11 17:14] LABS: POINT-OF-CARE METER ID UU13113725
[2017-04-11 21:23] LABS: POINT-OF-CARE METER ID UU13113774
[2017-04-11 23:40] VITALS: BP 177/80
[2017-04-12 05:45] LABS: POINT-OF-CARE METER ID UU13113774
[2017-04-12 07:34] VITALS: BP 128/77
[2017-04-12 11:37] LABS: POINT-OF-CARE METER ID UU13113774
[2017-04-12 16:10] LABS: POINT-OF-CARE METER ID UU13113725
[2017-04-12 16:29] VITALS: BP 126/74
== END 2017-04-12 18:11 | disposition home health service (06) | DRG 571 ==
LOC: EME 10:43 → 5EAST 11:52 → EDOF 11:52 → ENRESERVTM 12:00 → ENRESERV 12:00 → ENRESERVDT 12:00 → ENRESERV 12:04 → 5EAST 14:06
PROVIDERS: Emergency Medicine; Internal Medicine; Internal Medicine Infectious Disease; Student in an Organized Health Care Education/Training Program
PROC: 0JBQ0ZZ Excision of Right Foot Subcutaneous Tissue and Fascia, Open Approach (ICD-10-PCS; principal; 2017-04-07)
PROC: 0QBN0ZZ Excision of Right Metatarsal, Open Approach (ICD-10-PCS; principal; 2017-04-07)
DX: L03.115 Cellulitis of right lower limb (principal); E10.621 Type 1 diabetes mellitus with foot ulcer; E10.42 Type 1 diabetes mellitus with diabetic polyneuropathy; E10.65 Type 1 diabetes mellitus with hyperglycemia; E10.628 Type 1 diabetes mellitus with other skin complications; B95.4 Other streptococcus as the cause of diseases classified elsewhere; J43.9 Emphysema, unspecified; I10 Essential (primary) hypertension; G47.33 Obstructive sleep apnea (adult) (pediatric); E10.69 Type 1 diabetes mellitus with other specified complication; E87.1 Hypo-osmolality and hyponatremia; N40.0 Benign prostatic hyperplasia without lower urinary tract symptoms; Z96.41 Presence of insulin pump (external) (internal); F17.210 Nicotine dependence, cigarettes, uncomplicated; Z79.4 Long term (current) use of insulin
CPT/HCPCS: 73630; 73723; 76937; 80048; 80053; 80202; 82565; 82948; 83605; 83735; 85025; 85027; 85651; 86140; 87040; 87070; 87075; 87076; 87077; 87147; 87185; 87186; 87205; 88304; 88311; 93005; 94010; 94640; 94640 76; 97530 GO; 97530 GP; 99202; 99281; 99285; A6260; J0360; J0690; J1650; J2250; J2405; J2543; J3370; J7030; J7050; S0020

== ENCOUNTER 2017-05-23 16:53 | Observation (INO) | payer OTHER ==
[~2017-05-23] VITALS: Ht 180.3 cm; Wt 70.5 kg
[~2017-05-23 16:53] MED LIST changes: +ASPIRIN EC325 MG PO
[2017-05-23 17:25] LABS: PLATELET COUNT 232 K/uL (156-360)
[2017-05-23 17:34] LABS: CHLORIDE 88 mEq/L (99-109); POTASSIUM 4.2 mEq/L (3.7-5.4); SODIUM 125 mEq/L (136-147)
[2017-05-23 17:39] LABS: SERUM ETHYL ALCOHOL 46 mg/dL
[2017-05-23 17:40] LABS: CREATININE 1.6 mg/dL (0.6-1.3); GFR ESTIMATE (CALCULATED) 47 mL/min/ (58.99-99999)
[2017-05-23 17:41] LABS: UREA NITROGEN (BUN) 43 mg/dL (9-23)
[2017-05-23 17:53] LABS: GLUCOSE > 825 mg/dL (70-99)
[2017-05-23 18:17] LABS: HEMATOCRIT 38.5 % (38.0-50.0); HEMOGLOBIN 14.2 G/DL (12.5-16.6); MCH 32.4 PG (29.0-34.0); MCHC 37.9 G/DL (30.0-36.0); MCV 85.4 FL (86-99); RBC DIS.WIDTH-CV 12.4 % (11.8-14.6); RBC DIS.WIDTH-SD 38.5 % (39-53); RED BLOOD COUNT 4.51 M/uL (4.00-5.50); WHITE BLOOD COUNT 8.3 K/uL (4.1-10.2)
[2017-05-23 19:18] LABS: CHLORIDE 92 mEq/L (99-109); POTASSIUM 4.6 mEq/L (3.7-5.4); SODIUM 125 mEq/L (136-147)
[2017-05-23 19:19] LABS: MAGNESIUM 2.2 mg/dL (1.3-2.7)
[2017-05-23 19:21] LABS: APPEARANCE CLEAR ((CLEAR)); BILIRUBIN NEGATIVE; BLOOD SMALL; COLOR YELLOW ((YELLOW)); GLUCOSE (STRIP) >=500; KETONES 5; LEUKOCYTES NEGATIVE; NITRITE NEGATIVE; PROTEIN (STRIP) 100; SPECIFIC GRAVITY 1.026 (1.000-1.030); UROBILINOGEN 0.2 MG/DL (0.2-1.0)
[2017-05-23 19:24] LABS: BACTERIA NONE SEEN /HPF; EPITHELIAL CELLS NONE SEEN /HPF; MUCUS NONE SEEN /LPF; RED BLOOD CELLS 0-5 /HPF (0-5); WHITE BLOOD CELLS 0-5 /HPF (0-5)
[2017-05-23 19:24] LABS: CREATININE 1.3 mg/dL (0.6-1.3); GFR ESTIMATE (CALCULATED) > 59 mL/min/ (58.99-99999)
[2017-05-23 19:25] LABS: UREA NITROGEN (BUN) 41 mg/dL (9-23)
[2017-05-23 19:30] LABS: AMPHETAMINE NEGATIVE (500 ng/mL); BARBITURATES NEGATIVE (200 ng/mL); BENZODIAZEPINES PRESUMPTIVE POSITIVE (150 ng/mL); BUPRENORPHINE NEGATIVE (10 ng/mL); COCAINE NEGATIVE (150 ng/mL); METHADONE NEGATIVE (200 ng/mL); METHAMPHETAMINE NEGATIVE (500 ng/mL); OPIATES (MORPHINE) NEGATIVE (100 ng/mL); OXYCODONE NEGATIVE (100 ng/mL); PHENCYCLIDINE NEGATIVE (25 ng/mL); PROPOXYPHENE NEGATIVE (300 ng/mL); THC CANNABINOIDS NEGATIVE (50 ng/mL); TRICYCLIC ANTIDEPRESSANTS NEGATIVE (300 ng/mL)
[2017-05-23 19:30] LABS: TROP-I INTERPRETATION NEGATIVE; TROPONIN-I < 0.01 ng/mL (0.0-0.30)
[2017-05-23 19:46] LABS: GLUCOSE 772 mg/dL (70-99)
[2017-05-23 19:57] LABS: BENZODIAZEPINES, URINE SCREEN Negative (200 ng/mL)
[2017-05-23 21:14] LABS: VALPROIC ACID (DEPAKOTE) 14.8 MCG/ML (50-100)
[2017-05-23] MEDS ORDERED: DIVALPROEX SOD250 MG PO (23:04)
[2017-05-23] MEDS ORDERED: SYMBICORT60 INHALAT IH (23:06)
[2017-05-23] MEDS ORDERED: LO-DOSE ASPIRIN81 M2 PO (23:06)
[2017-05-23] MEDS ORDERED: DIAZEPAM2 MG PO (23:10)
[2017-05-23] MEDS ORDERED: TRAMADOL HCL50 MG PO (23:11)
[2017-05-23 23:48] VITALS: BP 173/79
[2017-05-24 00:08] LABS: GLUCOSE 339 mg/dL (70-99)
[2017-05-24 03:15] LABS: BASOPHIL (%) 0.8 % (0-1); BASOPHIL COUNT 0.1 K/uL (0-0.1); EOSINOPHIL (%) 3.2 % (0-5); EOSINOPHIL COUNT 0.2 K/uL (0-0.3); HEMATOCRIT 32.4 % (38.0-50.0); IMMATURE GRANULOCYTE (%) 0.3 % (0.0-0.7); LYMPHOCYTE (%) 33.7 % (15-42); LYMPHOCYTE COUNT 2.2 K/uL (1.0-2.8); MCH 31.9 PG (29.0-34.0); MCV 86.2 FL (86-99); MONOCYTE (%) 5.9 % (3-12); MONOCYTE COUNT 0.4 K/uL (0-0.8); NEUTROPHIL (%) 56.1 % (45-76); NEUTROPHIL COUNT 3.7 K/uL (1.8-6.4); PLATELET COUNT 202 K/uL (156-360); RBC DIS.WIDTH-CV 12.7 % (11.8-14.6); RED BLOOD COUNT 3.76 M/uL (4.00-5.50); WHITE BLOOD COUNT 6.6 K/uL (4.1-10.2)
[2017-05-24 03:18] LABS: GLUCOSE 497 mg/dL (70-99)
[2017-05-24 05:14] VITALS: BP 134/72
[2017-05-24 06:55] LABS: GLUCOSE 366 mg/dL (70-99)
[2017-05-24 06:56] LABS: CHLORIDE 102 MEQ/L (99-109); CREATININE 0.9 MG/DL (0.6-1.3); GFR ESTIMATE (CALCULATED) > 59 mL/min/ (58.99-99999); GLUCOSE 367 mg/dL (70-99); POTASSIUM 4.6 MEQ/L (3.7-5.4); SODIUM 130 MEQ/L (136-147); UREA NITROGEN (BUN) 31 mg/dL (9-23)
[2017-05-24 09:00] VITALS: BP 141/77
[2017-05-24 09:14] LABS: Estimated Average Glucose 232 mg/dL (70-123); HEMOGLOBIN A1c (GLYCOHEMOGLOB) 9.7 % HGB (Below 5.7)
[2017-05-24 11:31] VITALS: BP 146/68
[2017-05-24 15:22] VITALS: BP 132/70
[2017-05-24 19:29] VITALS: BP 152/76
[2017-05-25 00:08] VITALS: BP 172/77
[2017-05-25 03:47] VITALS: BP 149/78
[2017-05-25 07:55] VITALS: BP 165/75
[2017-05-25 11:07] VITALS: BP 155/77
[2017-05-25 15:11] VITALS: BP 178/88
[2017-05-25] MEDS ORDERED: DIAZEPAM2 MG PO (16:08)
[2017-05-25] MEDS ORDERED: LEVEMIR100 UNIT/2 SC (16:11)
== END 2017-05-25 18:36 | disposition home or self-care (01) ==
LOC: EME 16:53 → EDOF 22:56 → ENRESERV 22:59 → 5WEST 23:47
PROVIDERS: Emergency Medicine; Hospitalist; Nurse Practitioner Adult Health
DX: E11.10 Type 2 diabetes mellitus with ketoacidosis without coma (principal); F43.23 Adjustment disorder with mixed anxiety and depressed mood; F43.25 Adjustment disorder with mixed disturbance of emotions and conduct; R45.851 Suicidal ideations; T85.694A Other mechanical complication of insulin pump, initial encounter; T38.3X6A Underdosing of insulin and oral hypoglycemic [antidiabetic] drugs, initial encounter; E87.0 Hyperosmolality and hypernatremia; J96.00 Acute respiratory failure, unspecified whether with hypoxia or hypercapnia; Z99.81 Dependence on supplemental oxygen; J44.1 Chronic obstructive pulmonary disease with (acute) exacerbation; G89.4 Chronic pain syndrome; F60.9 Personality disorder, unspecified; E11.622 Type 2 diabetes mellitus with other skin ulcer; G47.33 Obstructive sleep apnea (adult) (pediatric); I10 Essential (primary) hypertension; I25.10 Atherosclerotic heart disease of native coronary artery without angina pectoris; Z88.8 Allergy status to other drugs, medicaments and biological substances; Z79.82 Long term (current) use of aspirin
CPT/HCPCS: 71010; 80047; 80048; 80048 91; 80164; 81003; 82010; 82800; 82947; 82947 91; 82948; 83036; 83735; 83930; 84484; 84999; 85025; 85027; 93005; 94640; 94640 76; 94799; 99281; 99285; G0378; G0480; J1650; J1815; J7030

== ENCOUNTER 2017-06-06 18:51 | Emergency (ER) | payer OTHER ==
[~2017-06-06] VITALS: Ht 180.3 cm; Wt 68.1 kg
[~2017-06-06 18:51] MED LIST changes: +DIAZEPAM2 MG PO; +DIVALPROEX SOD250 MG PO; +LEVEMIR100 UNIT/2 SC; +TRAMADOL HCL50 MG PO
[2017-06-06 20:08] LABS: BASOPHIL (%) 0.3 % (0-1); EOSINOPHIL (%) 0.5 % (0-5); HEMOGLOBIN 12.7 G/DL (12.5-16.6); IMMATURE GRANULOCYTE (%) 0.5 % (0.0-0.7); LYMPHOCYTE (%) 10.1 % (15-42); LYMPHOCYTE COUNT 0.6 K/uL (1.0-2.8); MCH 31.8 PG (29.0-34.0); MCHC 36.3 G/DL (30.0-36.0); MCV 87.7 FL (86-99); MONOCYTE (%) 9.7 % (3-12); MONOCYTE COUNT 0.6 K/uL (0-0.8); NEUTROPHIL (%) 78.9 % (45-76); PLATELET COUNT 193 K/uL (156-360); RBC DIS.WIDTH-CV 12.6 % (11.8-14.6); RBC DIS.WIDTH-SD 39.9 % (39-53); RED BLOOD COUNT 3.99 M/uL (4.00-5.50); WHITE BLOOD COUNT 6.3 K/uL (4.1-10.2)
[2017-06-06 20:21] LABS: ALBUMIN 3.2 g/dL (3.2-4.8)
[2017-06-06 20:22] LABS: CHLORIDE 101 mEq/L (99-109); POTASSIUM 3.9 mEq/L (3.7-5.4); SODIUM 131 mEq/L (136-147)
[2017-06-06 20:24] LABS: GLUCOSE 254 mg/dL (70-99); TOTAL PROTEIN 5.8 g/dL (6.4-8.3)
[2017-06-06 20:26] LABS: TOTAL BILIRUBIN 0.5 mg/dL (0.0-1.0)
[2017-06-06 20:27] LABS: ALKALINE PHOSPHATASE 76 IU/L (3-129)
[2017-06-06 20:28] LABS: CARBON DIOXIDE (BICARBONATE) 26.7 MEQ/L (20-31)
[2017-06-06 20:28] LABS: CREATININE 1.1 mg/dL (0.6-1.3); GFR ESTIMATE (CALCULATED) > 59 mL/min/ (58.99-99999)
[2017-06-06 20:29] LABS: AST (GOT) 13 IU/L (2-34); UREA NITROGEN (BUN) 18 mg/dL (9-23)
[2017-06-06 20:30] LABS: ALT (GPT) 12 IU/L (3-49)
[2017-06-06] MEDS ORDERED: TAMIFLU75 MG PO (21:12)
[2017-06-06 21:27] VITALS: BP 122/59
== END 2017-06-06 21:29 | disposition home or self-care (01) ==
LOC: EME 18:51
PROVIDERS: Emergency Medicine
DX: J10.1 Influenza due to other identified influenza virus with other respiratory manifestations (principal); E11.65 Type 2 diabetes mellitus with hyperglycemia; Z96.41 Presence of insulin pump (external) (internal); S91.301A Unspecified open wound, right foot, initial encounter; J44.9 Chronic obstructive pulmonary disease, unspecified; G47.33 Obstructive sleep apnea (adult) (pediatric); I10 Essential (primary) hypertension; M79.7 Fibromyalgia; R56.9 Unspecified convulsions; Z72.0 Tobacco use; Z86.73 Personal history of transient ischemic attack (TIA), and cerebral infarction without residual deficits; Z79.82 Long term (current) use of aspirin
CPT/HCPCS: 71046; 73630; 80053; 81003; 82010; 82803; 83605; 85025; 87502; 99281; 99285; J2405; J7030

== ENCOUNTER 2017-06-15 07:39 | Inpatient (IN) | payer OTHER ==
[~2017-06-15] VITALS: Ht 180.3 cm; Wt 63.4 kg
[2017-06-15] VITALS (11 sets, daily range): BP systolic 98–164; BP diastolic 59–92
[~2017-06-15 07:39] MED LIST changes: -ALBUTEROL0.63 MG/3 IH; -INSULIN PUMP MC; +TAMIFLU75 MG PO; -VENTOLIN HFA18 GM IH
[2017-06-15 08:40] LABS: HEMATOCRIT 34.8 % (38.0-50.0); HEMOGLOBIN 12.2 G/DL (12.5-16.6); MCH 31.4 PG (29.0-34.0); MCHC 35.1 G/DL (30.0-36.0); MCV 89.5 FL (86-99); RBC DIS.WIDTH-CV 12.7 % (11.8-14.6); RBC DIS.WIDTH-SD 41.3 % (39-53); RED BLOOD COUNT 3.89 M/uL (4.00-5.50); WHITE BLOOD COUNT 11.6 K/uL (4.1-10.2)
[2017-06-15 08:43] LABS: PLATELET COUNT 272 K/uL (156-360)
[2017-06-15 08:48] LABS: CARBON DIOXIDE (BICARBONATE) 10.2 MEQ/L (20-31)
[2017-06-15 08:50] LABS: ALBUMIN 2.7 g/dL (3.2-4.8); CHLORIDE 93 mEq/L (99-109); POTASSIUM 5.7 mEq/L (3.7-5.4); SODIUM 130 mEq/L (136-147)
[2017-06-15 08:52] LABS: TOTAL PROTEIN 7.4 g/dL (6.4-8.3)
[2017-06-15 08:53] LABS: GLUCOSE 611 mg/dL (70-99)
[2017-06-15 08:54] LABS: TOTAL BILIRUBIN 0.4 mg/dL (0.0-1.0)
[2017-06-15 08:56] LABS: ALKALINE PHOSPHATASE 88 IU/L (3-129); CREATININE 2.3 mg/dL (0.6-1.3); GFR ESTIMATE (CALCULATED) 31 mL/min/ (58.99-99999)
[2017-06-15 08:57] LABS: UREA NITROGEN (BUN) 58 mg/dL (9-23)
[2017-06-15 08:58] LABS: AST (GOT) 11 IU/L (2-34)
[2017-06-15 08:59] LABS: ALT (GPT) 9 IU/L (3-49)
[2017-06-15 10:52] LABS: HEMOGLOBIN A1c (GLYCOHEMOGLOB) 12.2 % (Below 5.7)
[2017-06-15 12:49] LABS: SODIUM 135 mEq/L (136-147)
[2017-06-15 12:51] LABS: GLUCOSE 368 mg/dL (70-99)
[2017-06-15 12:54] LABS: PHOSPHORUS 4.7 mg/dL (2.5-4.9)
[2017-06-15 12:55] LABS: CREATININE 1.9 mg/dL (0.6-1.3); GFR ESTIMATE (CALCULATED) 38 mL/min/ (58.99-99999)
[2017-06-15 12:56] LABS: UREA NITROGEN (BUN) 53 mg/dL (9-23)
[2017-06-15 12:57] LABS: CHLORIDE 103 mEq/L (99-109); POTASSIUM 4.4 mEq/L (3.7-5.4)
[2017-06-15 13:28] LABS: APPEARANCE CLEAR ((CLEAR)); BILIRUBIN NEGATIVE; BLOOD MODERATE; COLOR YELLOW ((YELLOW)); GLUCOSE (STRIP) >=500; KETONES 80; LEUKOCYTES NEGATIVE; NITRITE NEGATIVE; PROTEIN (STRIP) 100; UROBILINOGEN 0.2 MG/DL (0.2-1.0)
[2017-06-15 13:31] LABS: BACTERIA NONE SEEN /HPF; EPITHELIAL CELLS RARE /HPF; MUCUS TRACE /LPF; WHITE BLOOD CELLS 0-5 /HPF (0-5)
[2017-06-15] MEDS ORDERED: VENTOLIN HFA18 GM IH (14:08)
[2017-06-15] MEDS ORDERED: SYMBICORT60 INHALAT IH (14:09)
[2017-06-15] MEDS ORDERED: ALBUTEROL2.5 MG/3 M IH (14:09)
[2017-06-15] MEDS ORDERED: INSULIN PUMP MC (14:09)
[2017-06-15] MEDS ORDERED: B-121000 MC2 PO (14:10)
[2017-06-15] MEDS ORDERED: ERGOCALCIF50000 UNIT PO (14:10)
[2017-06-15 16:58] LABS: CHLORIDE 103 MEQ/L (99-109); GLUCOSE 197 mg/dL (70-99); POTASSIUM 4.1 MEQ/L (3.7-5.4); SODIUM 137 MEQ/L (136-147); UREA NITROGEN (BUN) 48 mg/dL (9-23)
[2017-06-15 17:05] LABS: CREATININE 1.2 MG/DL (0.6-1.3); GFR ESTIMATE (CALCULATED) > 59 mL/min/ (58.99-99999)
[2017-06-15 20:04] LABS: CHLORIDE 107 MEQ/L (99-109); POTASSIUM 3.9 MEQ/L (3.7-5.4); SODIUM 138 MEQ/L (136-147)
[2017-06-15 20:10] LABS: GFR ESTIMATE (CALCULATED) > 59 mL/min/ (58.99-99999); GLUCOSE 213 mg/dL (70-99); PHOSPHORUS 1.6 mg/dL (2.5-4.9); UREA NITROGEN (BUN) 44 mg/dL (9-23)
[2017-06-16] VITALS (19 sets, daily range): BP systolic 123–171; BP diastolic 51–101
[2017-06-16 01:00] LABS: CHLORIDE 109 mEq/L (99-109); POTASSIUM 3.5 mEq/L (3.7-5.4); SODIUM 139 mEq/L (136-147)
[2017-06-16 01:02] LABS: GLUCOSE 157 mg/dL (70-99)
[2017-06-16 01:06] LABS: GFR ESTIMATE (CALCULATED) > 59 mL/min/ (58.99-99999); UREA NITROGEN (BUN) 38 mg/dL (9-23)
[2017-06-16 01:07] LABS: PHOSPHORUS 1.3 mg/dL (2.5-4.9)
[2017-06-16 04:51] LABS: CHLORIDE 109 mEq/L (99-109); SODIUM 134 mEq/L (136-147)
[2017-06-16 04:53] LABS: GLUCOSE 150 mg/dL (70-99)
[2017-06-16 04:57] LABS: CREATININE 0.9 mg/dL (0.6-1.3); GFR ESTIMATE (CALCULATED) > 59 mL/min/ (58.99-99999)
[2017-06-16 04:58] LABS: UREA NITROGEN (BUN) 33 mg/dL (9-23)
[2017-06-16 05:04] LABS: PHOSPHORUS 1.8 mg/dL (2.5-4.9); POTASSIUM 4.7 mEq/L (3.7-5.4)
[2017-06-16 10:31] LABS: CHLORIDE 108 MEQ/L (99-109); CREATININE 0.7 MG/DL (0.6-1.3); GFR ESTIMATE (CALCULATED) > 59 mL/min/ (58.99-99999); GLUCOSE 153 mg/dL (70-99); SODIUM 138 MEQ/L (136-147); UREA NITROGEN (BUN) 29 mg/dL (9-23)
[2017-06-16 10:32] LABS: PHOSPHORUS 2.2 mg/dL (2.5-4.9); POTASSIUM 3.4 MEQ/L (3.7-5.4)
[2017-06-17] VITALS (16 sets, daily range): BP systolic 106–175; BP diastolic 53–92
[2017-06-17 09:13] LABS: HEMATOCRIT 27.9 % (38.0-50.0); MCH 30.5 PG (29.0-34.0); MCHC 35.1 G/DL (30.0-36.0); MCV 86.9 FL (86-99); PLATELET COUNT 199 K/uL (156-360); RBC DIS.WIDTH-CV 12.6 % (11.8-14.6); RBC DIS.WIDTH-SD 40.1 % (39-53); RED BLOOD COUNT 3.21 M/uL (4.00-5.50); WHITE BLOOD COUNT 8.6 K/uL (4.1-10.2)
[2017-06-17 09:14] LABS: HEMOGLOBIN 9.8 G/DL (12.5-16.6)
[2017-06-17 09:25] LABS: TROP-I INTERPRETATION NEGATIVE; TROPONIN-I < 0.01 ng/mL (0.0-0.30)
[2017-06-17 09:44] LABS: ABS NEUTROPHIL COUNT 7.4; ATYPICAL LYMPHOCYTE 3.5 %; EOSINOPHIL ABS CT 0.1; EOSINOPHILS 0.9 % (0-5.0); LYMPHOCYTES 5.3 % (15.0-45.0); MONOCYTES 4.4 % (0-9.0); PLAT.SUFFICIENCY ADEQUATE; SEG.NEUTROPHILS 85.9 % (46.0-76.0)
[2017-06-17 10:02] LABS: ALBUMIN 1.8 G/DL (3.2-4.8); ALKALINE PHOSPHATASE 71 IU/L (3-129); ALT (GPT) 6 IU/L (3-49); AST (GOT) 10 IU/L (2-34); CHLORIDE 105 MEQ/L (99-109); CREATININE 0.6 MG/DL (0.6-1.3); GFR ESTIMATE (CALCULATED) > 59 mL/min/ (58.99-99999); GLUCOSE 193 mg/dL (70-99); MAGNESIUM 1.9 mg/dl (1.3-2.7); PHOSPHORUS 2.9 mg/dL (2.5-4.9); POTASSIUM 3.6 MEQ/L (3.7-5.4); SODIUM 138 MEQ/L (136-147); TOTAL BILIRUBIN 0.3 MG/DL (0.0-1.0); TOTAL PROTEIN 4.9 G/DL (6.4-8.3); UREA NITROGEN (BUN) 16 mg/dL (9-23)
[2017-06-17 10:03] LABS: HIGH-SENS C-REACTIVE PROTEIN > 8.00 MG/DL (0.02-0.20)
[2017-06-17 15:51] LABS: CHLORIDE 102 MEQ/L (99-109); CREATININE 0.7 MG/DL (0.6-1.3); GFR ESTIMATE (CALCULATED) > 59 mL/min/ (58.99-99999); GLUCOSE 208 mg/dL (70-99); MAGNESIUM 1.9 mg/dl (1.3-2.7); PHOSPHORUS 2.5 mg/dL (2.5-4.9); POTASSIUM 3.7 MEQ/L (3.7-5.4); SODIUM 134 MEQ/L (136-147); UREA NITROGEN (BUN) 16 mg/dL (9-23)
[2017-06-18 00:17] VITALS: BP 116/65
[2017-06-18 01:34] VITALS: BP 134/79
[2017-06-18 02:44] LABS: INTER. NORMALIZED RATIO 1.1
[2017-06-18 02:47] LABS: PTT 30.8 SEC (25-37)
[2017-06-18 03:02] LABS: TROP-I INTERPRETATION NEGATIVE; TROPONIN-I < 0.01 ng/mL (0.0-0.30)
[2017-06-18 04:16] VITALS: BP 130/67
[2017-06-18 07:28] VITALS: BP 159/84
[2017-06-18 15:52] VITALS: BP 148/72
[2017-06-18 23:30] VITALS: BP 167/76
[2017-06-19 04:00] VITALS: BP 125/74
[2017-06-19 07:01] LABS: HEMATOCRIT 29.8 % (38.0-50.0); HEMOGLOBIN 10.4 G/DL (12.5-16.6); MCHC 34.9 G/DL (30.0-36.0); MCV 88.7 FL (86-99); PLATELET COUNT 201 K/uL (156-360); RBC DIS.WIDTH-CV 12.5 % (11.8-14.6); RBC DIS.WIDTH-SD 40.2 % (39-53); RED BLOOD COUNT 3.36 M/uL (4.00-5.50); WHITE BLOOD COUNT 11.3 K/uL (4.1-10.2)
[2017-06-19 07:26] LABS: CHLORIDE 97 MEQ/L (99-109); CREATININE 0.8 MG/DL (0.6-1.3); GFR ESTIMATE (CALCULATED) > 59 mL/min/ (58.99-99999); POTASSIUM 3.7 MEQ/L (3.7-5.4); SODIUM 133 MEQ/L (136-147); UREA NITROGEN (BUN) 17 mg/dL (9-23)
[2017-06-19 07:34] LABS: ABS NEUTROPHIL COUNT 9.2; ANISOCYTOSIS 1+; ATYPICAL LYMPHOCYTE 5.2 %; EOSINOPHIL ABS CT 0; LYMPHOCYTES 6.1 % (15.0-45.0); PLAT.SUFFICIENCY ADEQUATE; SEG.NEUTROPHILS 81.7 % (46.0-76.0)
[2017-06-19 07:48] LABS: GLUCOSE 62 mg/dL (70-99)
[2017-06-19 08:47] VITALS: BP 134/71
[2017-06-19 16:09] VITALS: BP 125/63
[2017-06-19 21:47] VITALS: BP 143/73
[2017-06-19 23:38] VITALS: BP 164/78
[2017-06-20 08:41] VITALS: BP 137/71
[2017-06-20 16:35] VITALS: BP 159/74
[2017-06-21 00:33] VITALS: BP 133/60
[2017-06-21 06:25] LABS: BASOPHIL (%) 0.3 % (0-1); EOSINOPHIL (%) 1.4 % (0-5); EOSINOPHIL COUNT 0.1 K/uL (0-0.3); HEMATOCRIT 26.3 % (38.0-50.0); IMMATURE GRANULOCYTE (%) 3.8 % (0.0-0.7); LYMPHOCYTE (%) 19.5 % (15-42); LYMPHOCYTE COUNT 1.9 K/uL (1.0-2.8); MCH 30.3 PG (29.0-34.0); MCHC 34.2 G/DL (30.0-36.0); MCV 88.6 FL (86-99); MONOCYTE (%) 12.3 % (3-12); MONOCYTE COUNT 1.2 K/uL (0-0.8); NEUTROPHIL (%) 62.7 % (45-76); NEUTROPHIL COUNT 6.2 K/uL (1.8-6.4); PLATELET COUNT 210 K/uL (156-360); RBC DIS.WIDTH-CV 12.2 % (11.8-14.6); RBC DIS.WIDTH-SD 39.5 % (39-53); RED BLOOD COUNT 2.97 M/uL (4.00-5.50); WHITE BLOOD COUNT 9.8 K/uL (4.1-10.2)
[2017-06-21 07:06] LABS: CHLORIDE 99 MEQ/L (99-109); CREATININE 0.9 MG/DL (0.6-1.3); GFR ESTIMATE (CALCULATED) > 59 mL/min/ (58.99-99999); GLUCOSE 53 mg/dL (70-99); MAGNESIUM 1.7 mg/dl (1.3-2.7); SODIUM 134 MEQ/L (136-147); UREA NITROGEN (BUN) 25 mg/dL (9-23)
[2017-06-21 07:15] LABS: POTASSIUM 4.7 MEQ/L (3.7-5.4)
[2017-06-21 07:35] VITALS: BP 179/82
[2017-06-21 16:14] VITALS: BP 119/62
[2017-06-22 01:35] VITALS: BP 148/74
[2017-06-22 07:24] VITALS: BP 112/56
[2017-06-22 10:22] LABS: HEMATOCRIT 28.4 % (38.0-50.0); HEMOGLOBIN 9.8 G/DL (12.5-16.6); MCH 31.2 PG (29.0-34.0); MCHC 34.5 G/DL (30.0-36.0); MCV 90.4 FL (86-99); PLATELET COUNT 272 K/uL (156-360); RBC DIS.WIDTH-CV 12.4 % (11.8-14.6); RBC DIS.WIDTH-SD 40.3 % (39-53); RED BLOOD COUNT 3.14 M/uL (4.00-5.50); WHITE BLOOD COUNT 10.4 K/uL (4.1-10.2)
[2017-06-22 10:43] LABS: CHLORIDE 92 MEQ/L (99-109); CREATININE 0.9 MG/DL (0.6-1.3); GFR ESTIMATE (CALCULATED) > 59 mL/min/ (58.99-99999); POTASSIUM 4.9 MEQ/L (3.7-5.4); UREA NITROGEN (BUN) 25 mg/dL (9-23)
[2017-06-22 10:44] LABS: GLUCOSE 308 mg/dL (70-99); SODIUM 127 MEQ/L (136-147)
[2017-06-22 15:26] VITALS: BP 128/63
[2017-06-22 20:42] VITALS: BP 155/73
[2017-06-23 00:04] VITALS: BP 145/68
[2017-06-23 05:50] LABS: HEMATOCRIT 26.8 % (38.0-50.0); HEMOGLOBIN 9.4 G/DL (12.5-16.6); MCH 31.3 PG (29.0-34.0); MCHC 35.1 G/DL (30.0-36.0); MCV 89.3 FL (86-99); PLATELET COUNT 279 K/uL (156-360); RBC DIS.WIDTH-CV 12.5 % (11.8-14.6); RBC DIS.WIDTH-SD 40.2 % (39-53); WHITE BLOOD COUNT 8.4 K/uL (4.1-10.2)
[2017-06-23 06:13] LABS: CHLORIDE 97 MEQ/L (99-109); CREATININE 0.7 MG/DL (0.6-1.3); GFR ESTIMATE (CALCULATED) > 59 mL/min/ (58.99-99999); GLUCOSE 239 mg/dL (70-99); POTASSIUM 4.9 MEQ/L (3.7-5.4); SODIUM 132 MEQ/L (136-147); UREA NITROGEN (BUN) 28 mg/dL (9-23)
[2017-06-23 07:02] VITALS: BP 135/74
[2017-06-23 15:14] VITALS: BP 109/55
[2017-06-23] MEDS ORDERED: LEVOFLOXACIN750 MG PO (16:05)
[2017-06-23] MEDS ORDERED: OSELTAMIVIR PHO75 MG PO (16:05)
[2017-06-23] MEDS ORDERED: MYCOSTATIN 100,60 ML PO (16:05)
[2017-06-23] MEDS ORDERED: ESCITALOPRAM OX10 MG PO (16:06)
[2017-06-23] MEDS ORDERED: LOPRESSOR25 MG PO (16:06)
[2017-06-23 21:24] VITALS: BP 138/65
[2017-06-24 00:20] VITALS: BP 129/62
[2017-06-24 07:04] VITALS: BP 141/84
[2017-06-24] MEDS ORDERED: NOVOLOG 10100 UNITS/ SC (07:41)
[2017-06-24] MEDS ORDERED: BENZONATATE100 MG PO (07:42)
[2017-06-24] MEDS ORDERED: Robitussin AC,Tussi- PO (07:42)
[2017-06-24] MEDS ORDERED: NOVOLOG MI100 UNIT/3 SC ×2 (07:42→13:12)
[2017-06-24] MEDS ORDERED: OSELTAMIVIR PHO75 MG PO (07:43)
== END 2017-06-24 14:56 | DRG 637 ==
LOC: EME 07:39 → 4WEST 10:39 → EDOF 10:39 → ENRESERV 10:43 → 4WEST 13:26 → CANRESERV 06-17 20:02 → ENRESERV 06-17 20:02 → 4WEST 06-17 20:02 → ENRESERV 06-17 20:03 → 5SOUTH 06-17 22:22 → ENPENDDIS 06-24 12:12 → 5SOUTH 06-24 14:56
PROVIDERS: Hospitalist; Internal Medicine; Internal Medicine Critical Care Medicine; Nurse Practitioner Family; Physician Assistant; Physician Assistant Medical
DX: E11.10 Type 2 diabetes mellitus with ketoacidosis without coma (principal); J44.1 Chronic obstructive pulmonary disease with (acute) exacerbation; J10.08 Influenza due to other identified influenza virus with other specified pneumonia; J18.0 Bronchopneumonia, unspecified organism; J44.0 Chronic obstructive pulmonary disease with (acute) lower respiratory infection; N17.9 Acute kidney failure, unspecified; I10 Essential (primary) hypertension; R45.851 Suicidal ideations; F43.21 Adjustment disorder with depressed mood; F60.9 Personality disorder, unspecified; I27.20 Pulmonary hypertension, unspecified; E87.1 Hypo-osmolality and hyponatremia; Y95 Nosocomial condition; E11.649 Type 2 diabetes mellitus with hypoglycemia without coma; R07.89 Other chest pain; R79.1 Abnormal coagulation profile; D64.9 Anemia, unspecified; N40.0 Benign prostatic hyperplasia without lower urinary tract symptoms; E11.40 Type 2 diabetes mellitus with diabetic neuropathy, unspecified; I25.10 Atherosclerotic heart disease of native coronary artery without angina pectoris; G47.33 Obstructive sleep apnea (adult) (pediatric); M79.7 Fibromyalgia; G89.29 Other chronic pain; Z79.4 Long term (current) use of insulin; Z96.41 Presence of insulin pump (external) (internal); Z86.73 Personal history of transient ischemic attack (TIA), and cerebral infarction without residual deficits; Z91.14 Patient's other noncompliance with medication regimen; Z72.0 Tobacco use
CPT/HCPCS: 71045; 71046; 71275; 80048; 80048 91; 80053; 81003; 82010; 82803; 82948; 83036; 83605; 83735; 83880; 84100; 84145 90; 84484; 85025; 85027; 85379; 85610; 85730; 86141; 86713 90; 87040; 87070; 87205; 87449; 87502; 87641; 93005; 93306; 94640; 94640 76; 94760; 94799; 97530 GP; 99202; 99281; 99285; J0456; J0692; J1650; J1815; J1885; J2270; J7030; J7050

== ENCOUNTER 2017-07-31 16:37 | Observation (INO) | payer OTHER ==
[~2017-07-31] VITALS: Ht 180.3 cm; Wt 72.0 kg
[~2017-07-31 16:37] MED LIST changes: +ALBUTEROL2.5 MG/3 M IH; +B-121000 MC2 PO; +ESCITALOPRAM OX10 MG PO; +INSULIN PUMP MC; +LEVOFLOXACIN750 MG PO; +LOPRESSOR25 MG PO; +MYCOSTATIN 100,60 ML PO; +NOVOLOG 10100 UNITS/ SC; +NOVOLOG MI100 UNIT/3 SC; +OSELTAMIVIR PHO75 MG PO; +Robitussin AC,Tussi- PO; +VENTOLIN HFA18 GM IH
[2017-07-31 23:14] LABS: HEMATOCRIT 35.7 % (38.0-50.0); HEMOGLOBIN 12.9 G/DL (12.5-16.6); MCH 32.7 PG (29.0-34.0); MCHC 36.1 G/DL (30.0-36.0); MCV 90.4 FL (86-99); PLATELET COUNT 251 K/uL (156-360); RBC DIS.WIDTH-CV 13.7 % (11.8-14.6); RBC DIS.WIDTH-SD 45.1 % (39-53); RED BLOOD COUNT 3.95 M/uL (4.00-5.50); WHITE BLOOD COUNT 7.7 K/uL (4.1-10.2)
[2017-07-31 23:27] LABS: CHLORIDE 100 mEq/L (99-109); SODIUM 131 mEq/L (136-147)
[2017-07-31 23:33] LABS: GFR ESTIMATE (CALCULATED) > 59 mL/min/ (58.99-99999)
[2017-07-31 23:34] LABS: UREA NITROGEN (BUN) 21 mg/dL (9-23)
[2017-07-31 23:38] LABS: GLUCOSE 507 mg/dL (70-99)
[2017-08-01] MEDS ORDERED: DIAZEPAM2 MG PO (01:01)
[2017-08-01 03:08] VITALS: BP 169/86
[2017-08-01 05:48] LABS: HEMATOCRIT 34.6 % (38.0-50.0); MCH 31.4 PG (29.0-34.0); MCHC 34.7 G/DL (30.0-36.0); MCV 90.6 FL (86-99); PLATELET COUNT 243 K/uL (156-360); RBC DIS.WIDTH-CV 13.7 % (11.8-14.6); RED BLOOD COUNT 3.82 M/uL (4.00-5.50); WHITE BLOOD COUNT 6.6 K/uL (4.1-10.2)
[2017-08-01 06:18] LABS: CHLORIDE 102 MEQ/L (99-109); CREATININE 0.9 MG/DL (0.6-1.3); GFR ESTIMATE (CALCULATED) > 59 mL/min/ (58.99-99999); GLUCOSE 374 mg/dL (70-99); POTASSIUM 4.9 MEQ/L (3.7-5.4); SODIUM 134 MEQ/L (136-147); UREA NITROGEN (BUN) 19 mg/dL (9-23)
[2017-08-01 09:25] VITALS: BP 154/82
[2017-08-01 11:13] VITALS: BP 182/90
[2017-08-01 14:23] LABS: GLUCOSE 494 mg/dL (70-99)
== END 2017-08-01 16:13 | disposition home or self-care (01) ==
LOC: EME 16:37 → EDOF 08-01 01:25 → ENRESERV 08-01 01:26 → 5WEST 08-01 03:04
PROVIDERS: Emergency Medicine; Hospitalist; Nurse Practitioner Adult Health
DX: E11.65 Type 2 diabetes mellitus with hyperglycemia (principal); I10 Essential (primary) hypertension; J44.9 Chronic obstructive pulmonary disease, unspecified; G47.33 Obstructive sleep apnea (adult) (pediatric); F17.200 Nicotine dependence, unspecified, uncomplicated; Z86.31 Personal history of diabetic foot ulcer; R51 Headache; H92.02 Otalgia, left ear; S00.81XA Abrasion of other part of head, initial encounter; H11.30 Conjunctival hemorrhage, unspecified eye; E87.0 Hyperosmolality and hypernatremia; Z79.4 Long term (current) use of insulin
CPT/HCPCS: 70450; 80048; 82800; 82948; 83930; 84999; 85027; 99281; 99285; G0378; J7030

== ENCOUNTER 2017-08-06 15:39 | Inpatient (IN) | payer OTHER ==
[~2017-08-06] VITALS: Ht 180.3 cm; Wt 68.8 kg
[2017-08-06 16:23] LABS: HEMATOCRIT 32.6 % (38.0-50.0); HEMOGLOBIN 11.8 G/DL (12.5-16.6); MCH 32.4 PG (29.0-34.0); MCHC 36.2 G/DL (30.0-36.0); MCV 89.6 FL (86-99); PLATELET COUNT 251 K/uL (156-360); RBC DIS.WIDTH-CV 13.3 % (11.8-14.6); RBC DIS.WIDTH-SD 43.9 % (39-53); RED BLOOD COUNT 3.64 M/uL (4.00-5.50); WHITE BLOOD COUNT 6.8 K/uL (4.1-10.2)
[2017-08-06 16:25] LABS: CARBON DIOXIDE (BICARBONATE) 30.3 MEQ/L (20-31)
[2017-08-06 16:37] LABS: POTASSIUM 4.4 mEq/L (3.7-5.4)
[2017-08-06 17:23] LABS: CHLORIDE 88 mEq/L (99-109); CREATININE 1.5 mg/dL (0.6-1.3); GFR ESTIMATE (CALCULATED) 50 mL/min/ (58.99-99999); GLUCOSE 805 mg/dL (70-99); SODIUM 124 mEq/L (136-147); UREA NITROGEN (BUN) 31 mg/dL (9-23)
[2017-08-06 17:52] LABS: APPEARANCE CLEAR ((CLEAR)); BILIRUBIN NEGATIVE; BLOOD SMALL; COLOR STRAW ((YELLOW)); GLUCOSE (STRIP) >=500; KETONES 5; LEUKOCYTES NEGATIVE; NITRITE NEGATIVE; PROTEIN (STRIP) 100; SPECIFIC GRAVITY 1.025 (1.000-1.030); UROBILINOGEN 0.2 MG/DL (0.2-1.0)
[2017-08-06 18:10] LABS: BACTERIA NONE SEEN /HPF; EPITHELIAL CELLS NONE SEEN /HPF; MUCUS NONE SEEN /LPF; RED BLOOD CELLS 0-5 /HPF (0-5); UCUL ADDED? NO; WHITE BLOOD CELLS 0-5 /HPF (0-5)
[2017-08-06] MEDS ORDERED: NOVOLOG 10100 UNITS/ SC (19:22)
[2017-08-06 22:02] VITALS: BP 132/63
[2017-08-06 22:06] VITALS: BP 132/63
[2017-08-06 23:00] VITALS: BP 122/71
[2017-08-07] VITALS (15 sets, daily range): BP systolic 120–181; BP diastolic 1–101
[2017-08-07 00:40] LABS: PHOSPHORUS 3.5 mg/dL (2.5-4.9)
[2017-08-07 00:41] LABS: CHLORIDE 102 mEq/L (99-109); CREATININE 0.8 mg/dL (0.6-1.3); GFR ESTIMATE (CALCULATED) > 59 mL/min/ (58.99-99999); GLUCOSE 121 mg/dL (70-99); POTASSIUM 3.2 mEq/L (3.7-5.4); SODIUM 136 mEq/L (136-147); UREA NITROGEN (BUN) 24 mg/dL (9-23)
[2017-08-07 04:32] LABS: CHLORIDE 103 mEq/L (99-109); POTASSIUM 3.6 mEq/L (3.7-5.4); SODIUM 136 mEq/L (136-147)
[2017-08-07 04:37] LABS: PHOSPHORUS 3.2 mg/dL (2.5-4.9)
[2017-08-07 04:38] LABS: CREATININE 0.8 mg/dL (0.6-1.3); GFR ESTIMATE (CALCULATED) > 59 mL/min/ (58.99-99999); UREA NITROGEN (BUN) 22 mg/dL (9-23)
[2017-08-07 04:45] LABS: GLUCOSE 209 mg/dL (70-99)
[2017-08-07 09:18] LABS: CHLORIDE 108 MEQ/L (99-109); CREATININE 0.6 MG/DL (0.6-1.3); GFR ESTIMATE (CALCULATED) > 59 mL/min/ (58.99-99999); GLUCOSE 125 mg/dL (70-99); PHOSPHORUS 3.1 mg/dL (2.5-4.9); POTASSIUM 4.1 MEQ/L (3.7-5.4); SODIUM 139 MEQ/L (136-147); UREA NITROGEN (BUN) 19 mg/dL (9-23)
[2017-08-07 12:20] LABS: CHLORIDE 102 MEQ/L (99-109); CREATININE 0.7 MG/DL (0.6-1.3); GFR ESTIMATE (CALCULATED) > 59 mL/min/ (58.99-99999); POTASSIUM 4.2 MEQ/L (3.7-5.4); SODIUM 134 MEQ/L (136-147); UREA NITROGEN (BUN) 17 mg/dL (9-23)
[2017-08-07 12:22] LABS: GLUCOSE 250 mg/dL (70-99)
[2017-08-07 14:06] LABS: HEMOGLOBIN A1c (GLYCOHEMOGLOB) 8.7 % (Below 5.7)
[2017-08-07 16:21] LABS: CHLORIDE 102 MEQ/L (99-109); POTASSIUM 4.9 MEQ/L (3.7-5.4); SODIUM 132 MEQ/L (136-147)
[2017-08-07 16:29] LABS: CREATININE 0.8 MG/DL (0.6-1.3); GFR ESTIMATE (CALCULATED) > 59 mL/min/ (58.99-99999); GLUCOSE 223 mg/dL (70-99); PHOSPHORUS 2.9 mg/dL (2.5-4.9); UREA NITROGEN (BUN) 17 mg/dL (9-23)
[2017-08-07 20:13] LABS: CHLORIDE 101 MEQ/L (99-109); CREATININE 0.8 MG/DL (0.6-1.3); GFR ESTIMATE (CALCULATED) > 59 mL/min/ (58.99-99999); GLUCOSE 298 mg/dL (70-99); PHOSPHORUS 2.7 mg/dL (2.5-4.9); POTASSIUM 4.5 MEQ/L (3.7-5.4); SODIUM 132 MEQ/L (136-147); UREA NITROGEN (BUN) 20 mg/dL (9-23)
[2017-08-08 07:30] VITALS: BP 135/79
[2017-08-08 09:25] LABS: CHLORIDE 100 MEQ/L (99-109); CREATININE 0.8 MG/DL (0.6-1.3); GFR ESTIMATE (CALCULATED) > 59 mL/min/ (58.99-99999); GLUCOSE 355 mg/dL (70-99); POTASSIUM 4.6 MEQ/L (3.7-5.4); SODIUM 132 MEQ/L (136-147); UREA NITROGEN (BUN) 15 mg/dL (9-23)
[2017-08-08 12:23] LABS: GLUCOSE 377 mg/dL (70-99)
[2017-08-08 16:47] VITALS: BP 155/63
[2017-08-08 23:33] VITALS: BP 177/87
[2017-08-10] MEDS ORDERED: VALIUM2 MG PO (11:29)
[2017-08-10] MEDS ORDERED: SYMBICORT60 INHALAT IH (11:29)
[2017-08-10] MEDS ORDERED: DEPO-TESTOS100 MG/ML IM (20:41)
[2017-08-10] MEDS ORDERED: LOPRESSOR25 MG PO (20:42)
[2017-08-10] MEDS ORDERED: VENTOLIN HFA18 GM IH (20:43)
== END 2017-08-09 06:18 | disposition left against medical advice (07) | DRG 637 ==
LOC: EME 15:39 → EDOF 20:03 → 4WEST 20:03 → CANRESERV 20:09 → ENRESERV 20:09 → 4WEST 22:02 → ENRESERV 08-07 14:06 → 5EAST 08-07 15:30
PROVIDERS: Emergency Medicine; Hospitalist; Internal Medicine Critical Care Medicine
DX: E11.01 Type 2 diabetes mellitus with hyperosmolarity with coma (principal); E11.65 Type 2 diabetes mellitus with hyperglycemia; N17.9 Acute kidney failure, unspecified; E86.9 Volume depletion, unspecified; J44.0 Chronic obstructive pulmonary disease with (acute) lower respiratory infection; J18.0 Bronchopneumonia, unspecified organism; G47.33 Obstructive sleep apnea (adult) (pediatric); I10 Essential (primary) hypertension; M79.7 Fibromyalgia; N40.0 Benign prostatic hyperplasia without lower urinary tract symptoms; F22 Delusional disorders; F17.200 Nicotine dependence, unspecified, uncomplicated; Z96.41 Presence of insulin pump (external) (internal); Z86.73 Personal history of transient ischemic attack (TIA), and cerebral infarction without residual deficits; Z79.4 Long term (current) use of insulin; Z91.14 Patient's other noncompliance with medication regimen
CPT/HCPCS: 71046; 80048; 80048 91; 81003; 82010; 82803; 82948; 83036; 84100; 84999; 85027; 87641; 99281; 99285; J1644; J1815; J3480; J7030; J7040; J7050

== ENCOUNTER 2017-08-10 11:09 | Inpatient (IN) | payer OTHER ==
[~2017-08-10] VITALS: Ht 180.3 cm; Wt 68.6 kg
[2017-08-10] MEDS ORDERED: VALIUM2 MG PO (11:29)
[2017-08-10] MEDS ORDERED: SYMBICORT60 INHALAT IH (11:29)
[2017-08-10 11:36] LABS: BASOPHIL (%) 0.3 % (0-1); EOSINOPHIL (%) 1.9 % (0-5); EOSINOPHIL COUNT 0.1 K/uL (0-0.3); HEMATOCRIT 32.1 % (38.0-50.0); HEMOGLOBIN 11.6 G/DL (12.5-16.6); IMMATURE GRANULOCYTE (%) 0.4 % (0.0-0.7); LYMPHOCYTE COUNT 1.7 K/uL (1.0-2.8); MCH 32.1 PG (29.0-34.0); MCHC 36.1 G/DL (30.0-36.0); MCV 88.9 FL (86-99); MONOCYTE (%) 8.8 % (3-12); MONOCYTE COUNT 0.7 K/uL (0-0.8); NEUTROPHIL (%) 66.6 % (45-76); PLATELET COUNT 217 K/uL (156-360); RBC DIS.WIDTH-CV 13.2 % (11.8-14.6); RED BLOOD COUNT 3.61 M/uL (4.00-5.50); WHITE BLOOD COUNT 7.5 K/uL (4.1-10.2)
[2017-08-10 11:43] LABS: CARBON DIOXIDE (BICARBONATE) 28.8 MEQ/L (20-31)
[2017-08-10 11:44] LABS: ALBUMIN 3.3 g/dL (3.2-4.8); CHLORIDE 95 mEq/L (99-109); POTASSIUM 4.7 mEq/L (3.7-5.4); SODIUM 130 mEq/L (136-147)
[2017-08-10 11:45] LABS: MAGNESIUM 1.9 mg/dL (1.3-2.7)
[2017-08-10 11:47] LABS: APPEARANCE CLEAR ((CLEAR)); BILIRUBIN NEGATIVE; BLOOD MODERATE; COLOR STRAW ((YELLOW)); GLUCOSE (STRIP) >=500; KETONES 20; LEUKOCYTES NEGATIVE; NITRITE NEGATIVE; PROTEIN (STRIP) 100; SPECIFIC GRAVITY 1.022 (1.000-1.030); TOTAL PROTEIN 6.4 g/dL (6.4-8.3); UROBILINOGEN 0.2 MG/DL (0.2-1.0)
[2017-08-10 11:48] LABS: GLUCOSE 584 mg/dL (70-99)
[2017-08-10 11:49] LABS: TOTAL BILIRUBIN 0.8 mg/dL (0.0-1.0)
[2017-08-10 11:50] LABS: ALKALINE PHOSPHATASE 122 IU/L (3-129); CREATININE 1.1 mg/dL (0.6-1.3); GFR ESTIMATE (CALCULATED) > 59 mL/min/ (58.99-99999); SERUM ETHYL ALCOHOL < 10 mg/dL
[2017-08-10 11:52] LABS: AST (GOT) 10 IU/L (2-34); BACTERIA NONE SEEN /HPF; EPITHELIAL CELLS NONE SEEN /HPF; MUCUS NONE SEEN /LPF; UCUL ADDED? NO; WHITE BLOOD CELLS 0-5 /HPF (0-5)
[2017-08-10 11:53] LABS: ALT (GPT) 7 IU/L (3-49)
[2017-08-10 11:54] LABS: UREA NITROGEN (BUN) 28 mg/dL (9-23)
[2017-08-10 12:35] LABS: BENZODIAZEPINES, URINE SCREEN Negative (200 ng/mL)
[2017-08-10 15:24] LABS: CHLORIDE 102 mEq/L (99-109); POTASSIUM 4.1 mEq/L (3.7-5.4); SODIUM 135 mEq/L (136-147)
[2017-08-10 15:30] LABS: CREATININE 0.9 mg/dL (0.6-1.3); GFR ESTIMATE (CALCULATED) > 59 mL/min/ (58.99-99999)
[2017-08-10 15:31] LABS: UREA NITROGEN (BUN) 25 mg/dL (9-23)
[2017-08-10 15:32] LABS: GLUCOSE 237 mg/dL (70-99)
[2017-08-10 19:30] VITALS: BP 154/70
[2017-08-10 19:41] VITALS: BP 154/70
[2017-08-10] MEDS ORDERED: DEPO-TESTOS100 MG/ML IM (20:41)
[2017-08-10] MEDS ORDERED: LOPRESSOR25 MG PO (20:42)
[2017-08-10] MEDS ORDERED: VENTOLIN HFA18 GM IH (20:43)
[2017-08-11 07:51] VITALS: BP 119/56
[2017-08-11 13:26] LABS: GLUCOSE 443 mg/dL (70-99)
[2017-08-11 15:55] VITALS: BP 130/74
[2017-08-12 09:49] VITALS: BP 172/81
[2017-08-12 10:29] VITALS: BP 130/60
[2017-08-12 16:29] VITALS: BP 146/70
[2017-08-13 08:06] VITALS: BP 123/74
[2017-08-13 08:55] LABS: CHLORIDE 103 MEQ/L (99-109); CREATININE 0.8 MG/DL (0.6-1.3); GFR ESTIMATE (CALCULATED) > 59 mL/min/ (58.99-99999); POTASSIUM 4.8 MEQ/L (3.7-5.4); SODIUM 138 MEQ/L (136-147); UREA NITROGEN (BUN) 21 mg/dL (9-23)
[2017-08-13 08:59] LABS: GLUCOSE 80 mg/dL (70-99)
[2017-08-13 15:35] VITALS: BP 119/62
[2017-08-14 07:59] VITALS: BP 137/68
[2017-08-14 16:26] VITALS: BP 142/73
[2017-08-15 07:58] VITALS: BP 111/62
[2017-08-15 15:48] VITALS: BP 119/67
[2017-08-16 08:04] VITALS: BP 170/79
[2017-08-16 12:06] VITALS: BP 135/70
[2017-08-16 13:02] LABS: GLUCOSE 351 mg/dL (70-99)
[2017-08-16 15:55] VITALS: BP 119/69
[2017-08-17 08:32] VITALS: BP 146/73
[2017-08-17 15:19] VITALS: BP 155/78
[2017-08-18 08:10] VITALS: BP 140/77
[2017-08-18 15:57] VITALS: BP 129/70
[2017-08-19 08:24] VITALS: BP 150/78
[2017-08-19 15:40] VITALS: BP 137/72
[2017-08-20 08:13] VITALS: BP 126/61
[2017-08-20 15:50] VITALS: BP 131/70
[2017-08-21 07:56] VITALS: BP 139/72
[2017-08-21 15:46] VITALS: BP 130/70
[2017-08-22 08:16] VITALS: BP 118/72
[2017-08-22 16:29] VITALS: BP 161/71
[2017-08-22 18:52] VITALS: BP 143/72
[2017-08-23 08:11] VITALS: BP 183/88
[2017-08-23] MEDS ORDERED: DULOXETINE HCL30 MG PO (10:16)
[2017-08-23] MEDS ORDERED: SYMBICORT60 INHALAT IH (10:16)
[2017-08-23] MEDS ORDERED: LEVEMIR100 UNIT/2 SC ×2 (10:16)
[2017-08-23] MEDS ORDERED: LOPRESSOR25 MG PO (10:16)
[2017-08-23] MEDS ORDERED: VALIUM2 MG PO (10:16)
[2017-08-23] MEDS ORDERED: NOVOLOG 10100 UNITS/ SC (10:16)
[2017-08-23] MEDS ORDERED: ARIPIPRAZOLE5 MG PO (10:16)
[2017-08-23] MEDS ORDERED: VENTOLIN HFA18 GM IH (10:16)
== END 2017-08-23 12:27 | disposition home or self-care (01) | DRG 882 ==
LOC: EME 11:09 → 1WEST 18:16 → EDOF 18:16 → ENRESERV 18:34 → 1WEST 19:23
PROVIDERS: Emergency Medicine; Hospitalist; Psychiatry & Neurology Psychiatry
DX: F43.25 Adjustment disorder with mixed disturbance of emotions and conduct (principal); E11.65 Type 2 diabetes mellitus with hyperglycemia; E86.0 Dehydration; G47.33 Obstructive sleep apnea (adult) (pediatric); Z96.41 Presence of insulin pump (external) (internal); Z91.19 Patient's noncompliance with other medical treatment and regimen; Z59.0 Homelessness; R45.851 Suicidal ideations; E11.649 Type 2 diabetes mellitus with hypoglycemia without coma; Z91.11 Patient's noncompliance with dietary regimen; Z91.14 Patient's other noncompliance with medication regimen; F17.200 Nicotine dependence, unspecified, uncomplicated; I10 Essential (primary) hypertension; J44.9 Chronic obstructive pulmonary disease, unspecified; M79.7 Fibromyalgia; Z79.4 Long term (current) use of insulin; F60.9 Personality disorder, unspecified
CPT/HCPCS: 80048; 80048 91; 80053; 80306 90; 81003; 82010; 82803; 82948; 83735; 84999; 85025; 90837; 94640; 94640 76; 97150 GO; 97166 GO; 99202; 99281; 99285; G0480; J1815; J7030

== ENCOUNTER 2017-09-11 07:51 | Inpatient (IN) | payer OTHER ==
[~2017-09-11] VITALS: Ht 180.3 cm; Wt 64.8 kg
[~2017-09-11 07:51] MED LIST changes: +ARIPIPRAZOLE5 MG PO; +DEPO-TESTOS100 MG/ML IM; +DULOXETINE HCL30 MG PO
[2017-09-11 08:29] LABS: BASOPHIL (%) 0.4 % (0-1); EOSINOPHIL (%) 2.1 % (0-5); EOSINOPHIL COUNT 0.2 K/uL (0-0.3); HEMATOCRIT 33.5 % (38.0-50.0); HEMOGLOBIN 12.3 G/DL (12.5-16.6); IMMATURE GRANULOCYTE (%) 1.4 % (0.0-0.7); LYMPHOCYTE (%) 19.6 % (15-42); LYMPHOCYTE COUNT 1.7 K/uL (1.0-2.8); MCH 32.6 PG (29.0-34.0); MCHC 36.7 G/DL (30.0-36.0); MCV 88.9 FL (86-99); MONOCYTE (%) 5.2 % (3-12); MONOCYTE COUNT 0.4 K/uL (0-0.8); NEUTROPHIL (%) 71.3 % (45-76); NEUTROPHIL COUNT 6.1 K/uL (1.8-6.4); PLATELET COUNT 253 K/uL (156-360); RBC DIS.WIDTH-CV 13.3 % (11.8-14.6); RBC DIS.WIDTH-SD 42.6 % (39-53); RED BLOOD COUNT 3.77 M/uL (4.00-5.50); WHITE BLOOD COUNT 8.5 K/uL (4.1-10.2)
[2017-09-11 08:31] LABS: APPEARANCE CLEAR ((CLEAR)); BILIRUBIN NEGATIVE; BLOOD SMALL; COLOR STRAW ((YELLOW)); GLUCOSE (STRIP) >=500; KETONES 80; LEUKOCYTES NEGATIVE; NITRITE NEGATIVE; PROTEIN (STRIP) 100; SPECIFIC GRAVITY 1.024 (1.000-1.030); UROBILINOGEN 0.2 MG/DL (0.2-1.0)
[2017-09-11 08:33] LABS: CARBON DIOXIDE (BICARBONATE) 23.4 MEQ/L (20-31)
[2017-09-11 08:33] LABS: BACTERIA NONE SEEN /HPF; EPITHELIAL CELLS RARE /HPF; MUCUS NONE SEEN /LPF; RED BLOOD CELLS 0-5 /HPF (0-5); WHITE BLOOD CELLS 0-5 /HPF (0-5)
[2017-09-11 08:38] LABS: ALBUMIN 3.1 g/dL (3.2-4.8); CHLORIDE 88 mEq/L (99-109); POTASSIUM 5.9 mEq/L (3.7-5.4); SODIUM 125 mEq/L (136-147)
[2017-09-11 08:40] LABS: TOTAL PROTEIN 6.1 g/dL (6.4-8.3)
[2017-09-11 08:42] LABS: TOTAL BILIRUBIN 0.4 mg/dL (0.0-1.0)
[2017-09-11 08:44] LABS: ALKALINE PHOSPHATASE 164 IU/L (3-129); CREATININE 1.7 mg/dL (0.6-1.3); GFR ESTIMATE (CALCULATED) 43 mL/min/ (58.99-99999)
[2017-09-11 08:45] LABS: UREA NITROGEN (BUN) 39 mg/dL (9-23)
[2017-09-11 08:46] LABS: AST (GOT) 8 IU/L (2-34); GLUCOSE 762 mg/dL (70-99)
[2017-09-11 08:47] LABS: ALT (GPT) 7 IU/L (3-49)
[2017-09-11] MEDS ORDERED: NICOTINE PATCH1 EAC2 TD (11:40)
[2017-09-11 11:59] LABS: HEMOGLOBIN A1c (GLYCOHEMOGLOB) 11.3 % (Below 5.7)
[2017-09-11 12:40] LABS: CHLORIDE 101 mEq/L (99-109); GLUCOSE 187 mg/dL (70-99); POTASSIUM 4.3 mEq/L (3.7-5.4); SODIUM 137 mEq/L (136-147)
[2017-09-11 12:43] LABS: GFR ESTIMATE (CALCULATED) > 59 mL/min/ (58.99-99999); PHOSPHORUS 3.5 mg/dL (2.5-4.9)
[2017-09-11 12:44] LABS: CREATININE 1.2 mg/dL (0.6-1.3); UREA NITROGEN (BUN) 34 mg/dL (9-23)
[2017-09-11 13:12] LABS: CARBON DIOXIDE (BICARBONATE) 30.2 MEQ/L (20-31)
[2017-09-11 13:38] LABS: CHLORIDE 101 mEq/L (99-109); POTASSIUM 4.5 mEq/L (3.7-5.4); SODIUM 137 mEq/L (136-147)
[2017-09-11 13:40] LABS: GLUCOSE 153 mg/dL (70-99)
[2017-09-11 13:44] LABS: CREATININE 1.1 mg/dL (0.6-1.3); GFR ESTIMATE (CALCULATED) > 59 mL/min/ (58.99-99999)
[2017-09-11 13:45] LABS: UREA NITROGEN (BUN) 34 mg/dL (9-23)
[2017-09-11 15:30] VITALS: BP 142/70
[2017-09-11 19:27] VITALS: BP 145/75
[2017-09-11 23:15] VITALS: BP 139/55
[2017-09-12 04:03] VITALS: BP 137/75
[2017-09-12 06:21] LABS: HEMATOCRIT 30.1 % (38.0-50.0); HEMOGLOBIN 10.9 G/DL (12.5-16.6); MCH 31.9 PG (29.0-34.0); MCHC 36.2 G/DL (30.0-36.0); PLATELET COUNT 212 K/uL (156-360); RBC DIS.WIDTH-CV 13.1 % (11.8-14.6); RBC DIS.WIDTH-SD 41.4 % (39-53); RED BLOOD COUNT 3.42 M/uL (4.00-5.50); WHITE BLOOD COUNT 6.5 K/uL (4.1-10.2)
[2017-09-12 06:47] LABS: CHLORIDE 99 MEQ/L (99-109); CREATININE 0.8 MG/DL (0.6-1.3); GFR ESTIMATE (CALCULATED) > 59 mL/min/ (58.99-99999); POTASSIUM 4.1 MEQ/L (3.7-5.4); SODIUM 133 MEQ/L (136-147); UREA NITROGEN (BUN) 26 mg/dL (9-23)
[2017-09-12 06:48] LABS: GLUCOSE 247 mg/dL (70-99)
[2017-09-12 07:53] VITALS: BP 161/89
[2017-09-12 11:58] VITALS: BP 112/67
[2017-09-12 15:40] VITALS: BP 132/67
[2017-09-12 19:47] VITALS: BP 149/72
[2017-09-12 23:37] VITALS: BP 165/90
[2017-09-13 03:32] VITALS: BP 178/86
[2017-09-13 07:31] VITALS: BP 168/93
[2017-09-13 11:54] VITALS: BP 123/66
[2017-09-13 15:35] VITALS: BP 162/84
[2017-09-13 19:59] VITALS: BP 138/79
[2017-09-13 23:57] VITALS: BP 151/75
[2017-09-14 04:00] VITALS: BP 169/84
[2017-09-14 06:24] LABS: BASOPHIL (%) 0.6 % (0-1); EOSINOPHIL COUNT 0.2 K/uL (0-0.3); HEMATOCRIT 30.6 % (38.0-50.0); HEMOGLOBIN 10.8 G/DL (12.5-16.6); IMMATURE GRANULOCYTE (%) 1.2 % (0.0-0.7); LYMPHOCYTE (%) 37.7 % (15-42); LYMPHOCYTE COUNT 1.9 K/uL (1.0-2.8); MCH 31.7 PG (29.0-34.0); MCHC 35.3 G/DL (30.0-36.0); MCV 89.7 FL (86-99); MONOCYTE (%) 9.1 % (3-12); MONOCYTE COUNT 0.5 K/uL (0-0.8); NEUTROPHIL (%) 48.4 % (45-76); NEUTROPHIL COUNT 2.4 K/uL (1.8-6.4); PLATELET COUNT 218 K/uL (156-360); RBC DIS.WIDTH-CV 13.2 % (11.8-14.6); RBC DIS.WIDTH-SD 43.1 % (39-53); RED BLOOD COUNT 3.41 M/uL (4.00-5.50); WHITE BLOOD COUNT 4.9 K/uL (4.1-10.2)
[2017-09-14 07:16] LABS: CHLORIDE 104 MEQ/L (99-109); CREATININE 0.7 MG/DL (0.6-1.3); GFR ESTIMATE (CALCULATED) > 59 mL/min/ (58.99-99999); POTASSIUM 3.9 MEQ/L (3.7-5.4); SODIUM 138 MEQ/L (136-147); UREA NITROGEN (BUN) 11 mg/dL (9-23)
[2017-09-14 07:17] VITALS: BP 181/82
[2017-09-14 07:17] LABS: GLUCOSE 54 mg/dL (70-99)
[2017-09-14 12:05] VITALS: BP 168/80
[2017-09-14 15:20] VITALS: BP 157/90
[2017-09-14 19:42] VITALS: BP 166/84
[2017-09-15 00:04] VITALS: BP 168/83
[2017-09-15 03:50] VITALS: BP 168/80
[2017-09-15 06:29] LABS: HEMATOCRIT 32.1 % (38.0-50.0); HEMOGLOBIN 11.1 G/DL (12.5-16.6); MCH 31.6 PG (29.0-34.0); MCHC 34.6 G/DL (30.0-36.0); MCV 91.5 FL (86-99); PLATELET COUNT 211 K/uL (156-360); RBC DIS.WIDTH-CV 13.2 % (11.8-14.6); RBC DIS.WIDTH-SD 43.9 % (39-53); RED BLOOD COUNT 3.51 M/uL (4.00-5.50); WHITE BLOOD COUNT 4.9 K/uL (4.1-10.2)
[2017-09-15 07:25] LABS: CHLORIDE 101 MEQ/L (99-109); CREATININE 0.7 MG/DL (0.6-1.3); GFR ESTIMATE (CALCULATED) > 59 mL/min/ (58.99-99999); POTASSIUM 4.4 MEQ/L (3.7-5.4); SODIUM 136 MEQ/L (136-147); UREA NITROGEN (BUN) 14 mg/dL (9-23)
[2017-09-15 07:28] LABS: GLUCOSE 186 mg/dL (70-99)
[2017-09-15 07:45] VITALS: BP 164/88
[2017-09-15] MEDS ORDERED: LEVEMIR100 UNIT/2 SC (08:29)
[2017-09-15 12:13] VITALS: BP 129/64
[2017-09-15] MEDS ORDERED: EASY COMFORT I1 EAC4 MC (13:38)
== END 2017-09-15 14:31 | disposition home or self-care (01) | DRG 638 ==
LOC: EME 07:51 → EDOF 12:39 → 5SOUTH 12:39 → ENRESERV 12:42 → CANRESERV 12:42 → EDOF 12:42 → ENRESERV 13:16 → EDOF 13:33 → ENRESERV 14:12 → 5SOUTH 15:19
PROVIDERS: Emergency Medicine; Hospitalist; Internal Medicine; Internal Medicine Critical Care Medicine; Physician Assistant
DX: E11.10 Type 2 diabetes mellitus with ketoacidosis without coma (principal); R64 Cachexia; E44.1 Mild protein-calorie malnutrition; Z68.1 Body mass index [BMI] 19.9 or less, adult; E11.649 Type 2 diabetes mellitus with hypoglycemia without coma; I10 Essential (primary) hypertension; J44.9 Chronic obstructive pulmonary disease, unspecified; J84.10 Pulmonary fibrosis, unspecified; G47.33 Obstructive sleep apnea (adult) (pediatric); F32.9 Major depressive disorder, single episode, unspecified; M79.7 Fibromyalgia; F17.200 Nicotine dependence, unspecified, uncomplicated; Z79.4 Long term (current) use of insulin; Z79.51 Long term (current) use of inhaled steroids; Z86.73 Personal history of transient ischemic attack (TIA), and cerebral infarction without residual deficits; Z87.01 Personal history of pneumonia (recurrent); Z91.11 Patient's noncompliance with dietary regimen; Z91.19 Patient's noncompliance with other medical treatment and regimen
CPT/HCPCS: 70450; 71045; 80048; 80048 91; 80053; 81003; 82010; 82803; 82948; 83036; 84100; 85025; 85027; 87070; 87205; 93005; 94640; 94640 76; 94799; 99202; 99281; 99285; J1644; J1815; J7030; J7050

== ENCOUNTER 2017-10-08 13:45 | Emergency (ER) | payer OTHER ==
[~2017-10-08] VITALS: Ht 180.3 cm; Wt 66.0 kg
[~2017-10-08 13:45] MED LIST changes: +EASY COMFORT I1 EAC4 MC; +NICOTINE PATCH1 EAC2 TD
[2017-10-08 14:30] LABS: HEMATOCRIT 35.9 % (38.0-50.0); MCH 32.9 PG (29.0-34.0); MCHC 36.2 G/DL (30.0-36.0); MCV 90.9 FL (86-99); PLATELET COUNT 211 K/uL (156-360); RBC DIS.WIDTH-CV 12.7 % (11.8-14.6); RBC DIS.WIDTH-SD 42.1 % (39-53); RED BLOOD COUNT 3.95 M/uL (4.00-5.50); WHITE BLOOD COUNT 9.1 K/uL (4.1-10.2)
[2017-10-08 14:40] LABS: ALBUMIN 3.4 g/dL (3.2-4.8); CHLORIDE 94 mEq/L (99-109); POTASSIUM 4.7 mEq/L (3.7-5.4); SODIUM 129 mEq/L (136-147)
[2017-10-08 14:42] LABS: TOTAL PROTEIN 6.2 g/dL (6.4-8.3)
[2017-10-08 14:44] LABS: TOTAL BILIRUBIN 0.7 mg/dL (0.0-1.0)
[2017-10-08 14:46] LABS: ALKALINE PHOSPHATASE 156 IU/L (3-129); CREATININE 1.3 mg/dL (0.6-1.3); GFR ESTIMATE (CALCULATED) > 59 mL/min/ (58.99-99999); GLUCOSE 584 mg/dL (70-99)
[2017-10-08 14:47] LABS: UREA NITROGEN (BUN) 34 mg/dL (9-23)
[2017-10-08 14:48] LABS: AST (GOT) 9 IU/L (2-34)
[2017-10-08 14:49] LABS: ALT (GPT) 12 IU/L (3-49)
[2017-10-08 15:43] LABS: SERUM ETHYL ALCOHOL < 10 mg/dL
[2017-10-08 19:39] VITALS: BP 118/65
== END 2017-10-08 19:41 | disposition home or self-care (01) ==
LOC: EME 13:45
PROVIDERS: Emergency Medicine
DX: E11.65 Type 2 diabetes mellitus with hyperglycemia (principal); F32.9 Major depressive disorder, single episode, unspecified; F43.25 Adjustment disorder with mixed disturbance of emotions and conduct; J44.9 Chronic obstructive pulmonary disease, unspecified; I10 Essential (primary) hypertension; M79.7 Fibromyalgia; Z86.73 Personal history of transient ischemic attack (TIA), and cerebral infarction without residual deficits; Z79.4 Long term (current) use of insulin; Z96.41 Presence of insulin pump (external) (internal); Z72.0 Tobacco use
CPT/HCPCS: 80053; 81003; 82948; 85027; 90839; 99281; 99285; G0480; J2405; J7030

== ENCOUNTER 2017-11-28 19:35 | Observation (INO) | payer OTHER ==
[~2017-11-28] VITALS: Ht 180.3 cm; Wt 67.9 kg
[2017-11-28 20:39] LABS: BASOPHIL (%) 0.7 % (0-1); BASOPHIL COUNT 0.1 K/uL (0-0.1); EOSINOPHIL (%) 3.3 % (0-5); EOSINOPHIL COUNT 0.3 K/uL (0-0.3); HEMATOCRIT 38.4 % (38.0-50.0); HEMOGLOBIN 13.9 G/DL (12.5-16.6); IMMATURE GRANULOCYTE (%) 0.4 % (0.0-0.7); LYMPHOCYTE (%) 39.8 % (15-42); LYMPHOCYTE COUNT 3.4 K/uL (1.0-2.8); MCH 32.9 PG (29.0-34.0); MCHC 36.2 G/DL (30.0-36.0); MONOCYTE (%) 6.3 % (3-12); MONOCYTE COUNT 0.5 K/uL (0-0.8); NEUTROPHIL (%) 49.5 % (45-76); NEUTROPHIL COUNT 4.2 K/uL (1.8-6.4); PLATELET COUNT 214 K/uL (156-360); RBC DIS.WIDTH-CV 12.2 % (11.8-14.6); RBC DIS.WIDTH-SD 40.7 % (39-53); RED BLOOD COUNT 4.22 M/uL (4.00-5.50); WHITE BLOOD COUNT 8.4 K/uL (4.1-10.2)
[2017-11-28 20:46] LABS: CHLORIDE 96 mEq/L (99-109); POTASSIUM 4.4 mEq/L (3.7-5.4); SODIUM 130 mEq/L (136-147)
[2017-11-28 20:51] LABS: CREATININE 1.4 mg/dL (0.6-1.3); GFR ESTIMATE (CALCULATED) 54 mL/min/ (58.99-99999)
[2017-11-28 20:52] LABS: UREA NITROGEN (BUN) 24 mg/dL (9-23)
[2017-11-28 21:02] LABS: GLUCOSE 619 mg/dL (70-99)
[2017-11-28 21:56] LABS: APPEARANCE CLEAR ((CLEAR)); BILIRUBIN NEGATIVE; BLOOD SMALL; COLOR STRAW ((YELLOW)); GLUCOSE (STRIP) >=500; KETONES NEGATIVE; LEUKOCYTES NEGATIVE; NITRITE NEGATIVE; PROTEIN (STRIP) 100; SPECIFIC GRAVITY 1.012 (1.000-1.030); UROBILINOGEN 0.2 MG/DL (0.2-1.0)
[2017-11-28 22:05] LABS: BACTERIA NONE SEEN /HPF; EPITHELIAL CELLS NONE SEEN /HPF; MUCUS TRACE /LPF; RED BLOOD CELLS NONE SEEN /HPF (0-5); UCUL ADDED? NO; WHITE BLOOD CELLS 0-5 /HPF (0-5)
[2017-11-29] VITALS: BP 142/76
[2017-11-29 00:47] LABS: CHLORIDE 103 mEq/L (99-109); POTASSIUM 4.3 mEq/L (3.7-5.4); SODIUM 134 mEq/L (136-147)
[2017-11-29 00:52] LABS: CREATININE 1.1 mg/dL (0.6-1.3); GFR ESTIMATE (CALCULATED) > 59 mL/min/ (58.99-99999)
[2017-11-29 00:53] LABS: UREA NITROGEN (BUN) 24 mg/dL (9-23)
[2017-11-29 00:55] LABS: GLUCOSE 486 mg/dL (70-99)
[2017-11-29 05:24] LABS: HEMATOCRIT 36.3 % (38.0-50.0); HEMOGLOBIN 12.9 G/DL (12.5-16.6); MCH 32.2 PG (29.0-34.0); MCHC 35.5 G/DL (30.0-36.0); MCV 90.5 FL (86-99); PLATELET COUNT 195 K/uL (156-360); RBC DIS.WIDTH-CV 12.2 % (11.8-14.6); RBC DIS.WIDTH-SD 40.6 % (39-53); RED BLOOD COUNT 4.01 M/uL (4.00-5.50); WHITE BLOOD COUNT 6.5 K/uL (4.1-10.2)
[2017-11-29 05:53] LABS: CHLORIDE 105 MEQ/L (99-109); CREATININE 0.8 MG/DL (0.6-1.3); GFR ESTIMATE (CALCULATED) > 59 mL/min/ (58.99-99999); GLUCOSE 375 mg/dL (70-99); POTASSIUM 4.3 MEQ/L (3.7-5.4); SODIUM 136 MEQ/L (136-147); UREA NITROGEN (BUN) 23 mg/dL (9-23)
[2017-11-29 07:50] VITALS: BP 124/67
[2017-11-29 12:06] LABS: HEMOGLOBIN A1c (GLYCOHEMOGLOB) 11.1 % (Below 5.7)
[2017-11-29 12:31] VITALS: BP 137/87
[2017-11-29 13:18] LABS: CHLORIDE 106 MEQ/L (99-109); CREATININE 0.8 MG/DL (0.6-1.3); GFR ESTIMATE (CALCULATED) > 59 mL/min/ (58.99-99999); POTASSIUM 4.2 MEQ/L (3.7-5.4); SODIUM 139 MEQ/L (136-147); UREA NITROGEN (BUN) 21 mg/dL (9-23)
[2017-11-29 13:21] LABS: GLUCOSE 82 mg/dL (70-99)
[2017-11-29] MEDS ORDERED: LANTUS 10100 UNITS/ SQ (14:30)
[2017-11-29] MEDS ORDERED: NOVOLOG 10100 UNITS/ SC ×2 (14:30→14:31)
[2017-11-29] MEDS ORDERED: DEPAKOTE ER500 MG PO (14:31)
[2017-11-29] MEDS ORDERED: VALIUM2 MG PO (14:31)
[2017-11-29] MEDS ORDERED: VENTOLIN HFA18 GM PO (14:32)
[2017-11-29] MEDS ORDERED: NICOTINE PATCH1 EAC2 TD (14:32)
[2017-11-29] MEDS ORDERED: ALBUTEROL2.5 MG/3 M IH (14:32)
[2017-11-29] MEDS ORDERED: SYMBICORT60 INHALAT IH (14:33)
[2017-11-29] MEDS ORDERED: NIACIN500 M1 PO (14:33)
[2017-11-29] MEDS ORDERED: CYANOCOBALAM1000 MCG PO (14:33)
[2017-11-29] MEDS ORDERED: ERGOCALCIF50000 UNIT PO (14:33)
[2017-11-29] MEDS ORDERED: ARTIFICIAL TEAR15 M1 BOTH EYES (14:50)
[2017-11-29] MEDS ORDERED: BENZONATATE100 MG PO (14:50)
[2017-11-29] MEDS ORDERED: COZAAR25 MG PO (14:52)
[2017-11-29] MEDS ORDERED: FLONASE16 G1 BOTH NARES (14:52)
[2017-11-29] MEDS ORDERED: PROSCAR5 MG PO (14:52)
[2017-11-29] MEDS ORDERED: GUAIFENESIN200 M2 PO (14:53)
[2017-11-29] MEDS ORDERED: TOPAMAX100 MG PO (14:53)
[2017-11-29] MEDS ORDERED: HYTRIN2 MG PO (14:53)
== END 2017-11-29 17:45 | disposition home or self-care (01) ==
LOC: EME 19:35 → 4SOUTH 22:50 → EDOF 22:50 → ENRESERV 22:53 → 4SOUTH 23:54
PROVIDERS: Emergency Medicine; Internal Medicine
DX: N17.9 Acute kidney failure, unspecified (principal); E11.65 Type 2 diabetes mellitus with hyperglycemia; F32.9 Major depressive disorder, single episode, unspecified; R45.851 Suicidal ideations; F43.20 Adjustment disorder, unspecified; F60.9 Personality disorder, unspecified; E87.1 Hypo-osmolality and hyponatremia; G47.00 Insomnia, unspecified; J44.9 Chronic obstructive pulmonary disease, unspecified; I10 Essential (primary) hypertension; N40.0 Benign prostatic hyperplasia without lower urinary tract symptoms; Z79.4 Long term (current) use of insulin; Z87.891 Personal history of nicotine dependence
CPT/HCPCS: 71045; 80048; 80048 91; 81003; 82010; 82948; 83036; 85025; 85027; 94640; 94799; 99281; 99285; G0378; J1630; J1644; J1815; J2060; J7030